=== PATIENT | male | born 1960 | race Caucasian/White ===

== ENCOUNTER 2019-09-09 08:30 | Inpatient (IN) | payer BC, OTHER ==
[~2019-09-09] VITALS: Ht 177.8 cm; Wt 106.5 kg
[2019-09-09] MEDS ORDERED: NS IV 1000 ML 1,000 ML IV SCH ×2 (08:50→11:15)
--- NOTE | 2019-09-09 09:06 | ED Abdominal Pain ---
General Chief Complaint: Abdominal/GI Problems Stated Complaint: ABD PAIN Source of Information: Patient Exam Limitations: No Limitations History of Present Illness Date Seen by Provider: Sep 09, 2019 Time Seen by Provider: 08:50 Initial Comments 58-year-old male presents to the emergency room with acute left-sided pain. Patient states that he has had diverticulitis in the past. Patient reports he's had pain on and off for the past for 5 days. Intensely over the past evening. Patient states that he has had diverticulitis in the past and hasn't been on ciprofloxacin and Flagyl recently. He does not have a local provider. He also had surgery for skin cancer basal cell cancer on the right face with a fairly large 10 cm laceration that has been sutured and does have some localized erythema. Patient denies any history of cardiovascular pulmonary or renal disease. Patient has given informed consent for diagnostic and therapeutic services. He did say that he had labs recently including urinalysis but did not know the results. Timing/Duration: 2-3 Days (has been on oral Flagyl 500 mg 3 times a day and ciprofloxacin 500 mg daily patient has failed outpatient services), 3-4 Days (symptoms started 5 days ago he has had one previous episode of diverticulitis and states that the pain is the same), Getting Worse Severity/Quality: Moderate, Cramping Location: LLQ (similar to previous diverticulitis attacks) Radiation: LUQ, LLQ Activities at Onset: None (pain both at rest and with any type of physical activity) Modifying Factors: Improves With Defecating (she did take milk of magnesia yesterday which appears to worsen the situation. He thought he was constipated 3 days ago and has had bowel movements with flatus) Associated Symptoms: Back Pain Allergies and Home Medications Allergies Coded Allergies: No Known Drug Allergies (Unverified , 09/09/19) Patient Home Medication List Home Medication List Reviewed: Yes Review of Systems Review of Systems Constitutional: malaise, other (abdominal pain left lower quadrant consistent with previous history of diverticulitis) EENTM: No Symptoms Reported Respiratory: Cough (patient admits to smoking tobacco and has a chronic cough) Cardiovascular: No Symptoms Reported Gastrointestinal: Abdomen Distended, Abdominal Pain (left lower quadrant), Constipated (recent use of milk of magnesia), Nausea Genitourinary: Flank Pain (left flank pain) Musculoskeletal: back pain Skin: change in color (recent surgical removal of basal cell cancer large laceration approximately 10 cm in length with erythema and induration. Patient states that he had the lesion on his face for over 15 years) Psychiatric/Neurological: Anxiety Hematologic/Lymphatic: No Symptoms Reported Other Comments Patient has findings with left lower quadrant pain pain on palpation decreased bowel sounds and reports that this is consistent with his last bout of diverticulitis. 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 and has a history of 15) Orthopedic Respiratory: No Chronic Bronchitis (longtime smoker) Cardiac: No Neurological: No Genitourinary: No Gastrointestinal: Yes Diverticulosis (prior history of diverticulitis with similar pain patient was seen 2 days ago and was placed on Flagyl and ciprofloxacin without improvement) Musculoskeletal: No Chronic Back Pain Endocrine: No HEENT: No Skin Did You Recieve Any Treatments: Yes What Type of Treatment Did You: Surgical Intervention Psychosocial: No Integumentary: No Blood Disorders: No Physical Exam Vital Signs Vital Signs - First Documented 09/09/19 08:30 Temp 36.2 Pulse 93 Resp 16 B/P (MAP) 129/71 (90) Pulse Ox 96 O2 Delivery Room Air Capillary Refill : Height/Weight/BMI Height: '" Weight: lbs. oz. kg; BMI Method: General Appearance: WD/WN HEENT: PERRL/EOMI, normal ENT inspection, pharynx normal Neck: non-tender, full range of motion Respiratory: chest non-tender, crackles (patient is a smoker one pack per day no shortness of breath) Cardiovascular: normal peripheral pulses, regular rate, rhythm, no edema, no gallop, no JVD, no murmur Gastrointestinal: abnormal bowel sounds (diminished bowel sounds pain in the l ower quadrant), tenderness (left lower quadrant consistent with prior episode of diverticulitis getting worse on oral antibiotics) Extremities: normal range of motion, non-tender, normal inspection, no pedal edema, no calf tenderness Back: CVA tenderness (L) Neurologic/Psychiatric: cio II-XII nml as tested, no motor/sensory deficits, alert, normal mood/affect, oriented x 3 (but has marked pain in the left lower quadrant) Skin: normal color Focused Exam Lactate Level 09/09/19 08:45: Lactic Acid Level 1.91 Lactic Acid Level Laboratory Tests Test 09/09/19 08:45 Lactic Acid Level 1.91 MMOL/L (0.50-2.00) Progress/Results/Core Measures Results/Orders Lab Results Laboratory Tests Test 09/09/19 08:45 09/09/19 09:58 Range/Units White Blood Count 8.5 4.3-11.0 10^3/uL Red Blood Count 5.57 4.35-5.85 10^6/uL Hemoglobin 17.3 13.3-17.7 G/DL Hematocrit 52 40-54 % Mean Corpuscular Volume 93 80-99 FL Mean Corpuscular Hemoglobin 31 25-34 PG Mean Corpuscular Hemoglobin Concent 33 32-36 G/DL Red Cell Distribution Width 13.8 10.0-14.5 % Platelet Count 207 130-400 10^3/uL Mean Platelet Volume 10.2 7.4-10.4 FL Neutrophils (%) (Auto) 60 42-75 % Lymphocytes (%) (Auto) 26 12-44 % Monocytes (%) (Auto) 8 0-12 % Eosinophils (%) (Auto) 2 0-10 % Basophils (%) (Auto) 1 0-10 % Neutrophils # (Auto) 5.0 1.8-7.8 X 10^3 Lymphocytes # (Auto) 2.5 1.0-4.0 X 10^3 Monocytes # (Auto) 0.7 0.0-1.0 X 10^3 Eosinophils # (Auto) 0.2 0.0-0.3 10^3/uL Basophils # (Auto) 0.1 0.0-0.1 10^3/uL Sodium Level 135 135-145 MMOL/L Potassium Level 4.4 3.6-5.0 MMOL/L Chloride Level 100 98-107 MMOL/L Carbon Dioxide Level 19 L 21-32 MMOL/L Anion Gap 16 H 5-14 MMOL/L Blood Urea Nitrogen 23 H 7-18 MG/DL Creatinine 1.05 0.60-1.30 MG/DL Estimat Glomerular Filtration Rate > 60 BUN/Creatinine Ratio 22 Glucose Level 103 70-105 MG/DL Lactic Acid Level 1.91 0.50-2.00 MMOL/L Calcium Level 9.3 8.5-10.1 MG/DL Corrected Calcium 8.9 8.5-10.1 MG/DL Total Bilirubin 0.6 0.1-1.0 MG/DL Aspartate Amino Transf (AST/SGOT) 28 5-34 U/L Alanine Aminotransferase (ALT/SGPT) 36 0-55 U/L Alkaline Phosphatase 92 40-136 U/L Total Protein 7.9 6.4-8.2 GM/DL Albumin 4.5 3.2-4.5 GM/DL Lipase 44 8-78 U/L Urine Color YELLOW Urine Clarity CLEAR Urine pH 7.5 5-9 Urine Specific [place] 1.010 L 1.016-1.022 Urine Protein NEGATIVE NEGATIVE Urine Glucose (UA) NEGATIVE NEGATIVE Urine Ketones NEGATIVE NEGATIVE Urine Nitrite NEGATIVE NEGATIVE Urine Bilirubin NEGATIVE NEGATIVE Urine Urobilinogen 0.2 < = 1.0 MG/DL Urine Leukocyte Esterase NEGATIVE NEGATIVE Urine RBC (Auto) NEGATIVE NEGATIVE Urine RBC NONE /HPF Urine WBC RARE /HPF Urine Squamous Epithelial Cells RARE /HPF Urine Crystals NONE /LPF Urine Bacteria NEGATIVE /HPF Urine Casts NONE /LPF Urine Mucus NEGATIVE /LPF Urine Culture Indicated NO My Orders Orders - REENA NORTH DO Comprehensive Metabolic Panel (09/09/19 08:50) Lipase (09/09/19 08:50) Ua Culture If Indicated (09/09/19 08:50) Ed Iv/Invasive Line Start (09/09/19 08:50) Cbc With Automated Diff (09/09/19 08:50) Ed Iv/Invasive Line Start (09/09/19 08:50) Ns Iv 1000 Ml (Sodium Chloride 0.9%) (09/09/19 08:50) Blood Culture (09/09/19 08:50) Lactic Acid Analyzer (09/09/19 08:50) Iohexol Injection (Omnipaque 350 Mg/Ml 1 (09/09/19 09:45) Received Contrast (Hold Metformin- Contr (09/09/19 09:45) Ct Abdomen/Pelvis W (09/09/19 08:50) Metronidazole 500mg/100ml Ivpb (Flagyl 5 (09/09/19 11:15) Ns Iv 1000 Ml (Sodium Chloride 0.9%) (09/09/19 11:15) Ketorolac Injection (Toradol Injection) (09/09/19 11:30) Medications Given in ED Current Medications Medications Dose Ordered Sig/Anibal Route Start Time Stop Time Status Last Admin Dose Admin Iohexol 100 ml ONCE ONCE IV 09/09/19 09:45 09/09/19 09:46 DC 09/09/19 09:49 100 ML Metronidazole 100 ml @ 100 mls/hr ONCE ONCE IV 09/09/19 11:15 09/09/19 12:14 09/09/19 11:17 100 MLS/HR Vital Signs/I&O 09/09/19 08:30 Temp 36.2 Pulse 93 Resp 16 B/P (MAP) 129/71 (90) Pulse Ox 96 O2 Delivery Room Air Diagnostic Imaging Diagonstic Imaging: CT (CT scan of the abdomen reveals diffuse mild severity hepatic steatosis without focal lesions gallbladder is present mildly distended is no significant bile duct dilation spleen pancreas adrenal glands are unremarkable kidneys are normal enhancement no hydronephrosis or obstruction abdominal aorta has mild atherosclerotic plaques that is fairly tortuous. There is extensive colonic diverticulosis particularly at the sigmoid colon there is diffuse wall thickening of the sigmoid colon a focal inflamed diverticulum is not definitively visualized however given the wall thickening may be chronic possibly underlying colitis cannot be excluded there are a few prominent fluid- filled loops of small bowel that may reflect nonspecific enteritis no high degree of bowel obstruction there is some fluid in the proximal colon normal appendix is present there is no abdominal ascites or free air. In light of the patient's diagnostic presentation and failure to outpatient treatment I believe he has diverticulitis partially treated and got rest with IV antibiotics is recommended.) Comments Dr. howard Billy contacted at [phone] Haywood was contacted [phone]. Both agreed to inpatient stabilization at the [facility]. Patient can be transported by BLS ambulance Consults : Consulting Physician: IJEOMA HAYWOOD DO Consults Notes Telephone consultation with Dr. Haywood. Results of CT scan given and he agrees to hospitalist admission with nothing by mouth IV Flagyl and IV Zosyn. Departure Communication (Admissions) Time/Spoke to Admitting Phy: 11:35 Dr. Hong has agreed to admission to the [facility]. Dr. Haywood surgeon was also contacted and agrees with the admission. Patient is on IV fluids second liter has been started. Patient also was receiving Flagyl 500 mg IV after Walker had recommended continued IV antibiotics with Flagyl and Zosyn. Time/Spoke to Consulting Phy: 11:45 Dr. Haywood surgeon was contacted and agreed with admission. Patient has no evidence of abscess formation. Family Conversation Patient is aware of the transfer to [facility] and he will comply. Patient will be transported by S ambulance Patient has failed to respond positively to oral antibiotics with ciprofloxacin and Flagyl orally. Patient has a history of diverticulitis and a CT scan that is highly suspicious for continued and exacerbated diverticulitis. He has multiple episodes of diverticulosis identified in the sigmoid colon. In light of the patient's failure to respond to outpatient therapy IV antibiotics and got rest is most appropriate. Patient is being transferred to a higher level of care. Communication (PCP) Patient does not have a primary care provider. He had gone to the walk-in clinic earlier this week Pseudomonal Risk: No known risk Antibiotic last taken at: IV Flagyl administered in the emergency room Impression Primary Impression: Diverticulitis of intestine Additional Impression: Dehydration Disposition: ADMITTED INPATIENT Condition: Stable Admissions Decision to Admit Reason: Admit from ER (General) Decision to Admit/Date: Sep 09, 2019 Time/Decision to Admit Time: 11:45 Transfer Transfer Reason: Exceeds level of care Time Spoke to Accepting Phy: 11:[address] Hong has accepted the patient after Dr. Haywood has agreed to consult on the patient Transfer Time: 12:01 Transfer Facility: [facility] Method of Transfer: EMS Departure-Patient Inst. Decision time for Depature: 12:01 Referrals: NO,LOCAL PHYSICIAN (PCP) Primary Care Physician SHERITA GONZALEZ MD, ANTHONY H DO Sep 09, 2019 09:06
[2019-09-09 09:18] LABS: BASOPHILS % (AUTO) 1 % (0-10); EOSINOPHILS % (AUTO) 2 % (0-10); HEMATOCRIT 52 % (40-54); HEMOGLOBIN 17.3 G/DL (13.3-17.7); MEAN CORPUSCULAR HEMOGLOBIN 31 PG (25-34); MEAN CORPUSCULAR HGB CONC 33 G/DL (32-36); MEAN CORPUSCULAR VOLUME 93 FL (80-99); MEAN PLATELET VOLUME 10.2 FL (7.4-10.4); MONOCYTES % (AUTO) 8 % (0-12); NEUTROPHILS % (AUTO) 60 % (42-75); PLATELET COUNT 207 10^3/uL (130-400); RED CELL DISTRIBUTION WIDTH 13.8 % (10.0-14.5); WHITE BLOOD COUNT 8.5 10^3/uL (4.3-11.0)
[2019-09-09 09:19] LABS: BASOPHILS # (AUTO) 0.1 10^3/uL (0.0-0.1); EOSINOPHILS # (AUTO) 0.2 10^3/uL (0.0-0.3); LYMPHOCYTES # (AUTO) 2.5 X 10^3 (1.0-4.0); LYMPHOCYTES % (AUTO) 26 % (12-44); MONOCYTES # (AUTO) 0.7 X 10^3 (0.0-1.0)
[2019-09-09 09:28] LABS: ALKALINE PHOSPHATASE 92 U/L (40-136); BILIRUBIN,TOTAL 0.6 MG/DL (0.1-1.0); BUN/CREATININE RATIO 22; CALCIUM 9.3 MG/DL (8.5-10.1); CARBON DIOXIDE 19 MMOL/L (21-32); CHLORIDE 100 MMOL/L (98-107); CREATININE SERUM 1.05 MG/DL (0.60-1.30); GFR ESTIMATED > 60; GLUCOSE 103 MG/DL (70-105); POTASSIUM 4.4 MMOL/L (3.6-5.0); SODIUM 135 MMOL/L (135-145)
[2019-09-09 09:29] LABS: ALANINE AMINOTRANSFERASE 36 U/L (0-55); ALBUMIN 4.5 GM/DL (3.2-4.5); LIPASE 44 U/L (8-78); TOTAL PROTEIN 7.9 GM/DL (6.4-8.2)
[2019-09-09] MEDS ORDERED: IOHEXOL 350 MG/ML 100 ML (OMNIPAQUE 350) VIAL IV ONE (09:45)
[2019-09-09] MEDS ORDERED: HOLD METFORMIN - RECEIVED CONTRAST 20 ML VIAL IV SCH (09:45)
[2019-09-09 10:09] LABS: CLARITY,URINE CLEAR; COLOR,URINE YELLOW
[2019-09-09 10:10] LABS: BACTERIA,URINE NEGATIVE /HPF; BILIRUBIN,URINE NEGATIVE (NEGATIVE); GLUCOSE, URINE (UA) NEGATIVE (NEGATIVE); KETONES,URINE NEGATIVE (NEGATIVE); LEUKOCYTE ESTERASE ,URINE NEGATIVE (NEGATIVE); NITRITE,URINE NEGATIVE (NEGATIVE); PH,URINE 7.5 (5-9); PROTEIN,URINE NEGATIVE (NEGATIVE); SQUAMOUS EPITHELIAL CELL,UR RARE /HPF; WBC,URINE RARE /HPF
--- NOTE | 2019-09-09 10:29 | Diagnostic Imaging Report ---
PROCEDURE: CT abdomen and pelvis with contrast. TECHNIQUE: Multiple contiguous axial images were obtained through the abdomen and pelvis after administration of intravenous contrast. Auto Exposure Controls were utilized during the CT exam to meet ALARA standards for radiation dose reduction. INDICATION: Abdominal pain and pressure. Symptoms beginning several days earlier. Progressive increase in pain and pressure post antibiotic initiation. CORRELATION STUDY: None FINDINGS: Minimal subsegmental areas of atelectasis. No significant basilar infiltrate. Small hiatal hernia. Diffuse mild severity hepatic steatosis without focal lesion. Gallbladder is present, very mildly distended. No significant bile duct dilatation. Spleen, pancreas and adrenal glands are unremarkable. Kidneys with normal enhancement. No hydronephrosis or obstruction. The abdominal aorta demonstrates mild atherosclerotic plaque-like formation that is fairly tortuous. There is extensive colonic diverticulosis particularly at the sigmoid colon. There is diffuse wall thickening of sigmoid colon. A focal inflamed diverticulum is not definitively visualized. However, given the wall thickening may be chronic, possibly of underlying colitis not excluded. Additionally, there are a few prominent fluid-filled loops of small bowel that may reflect nonspecific enteritis. No high degree bowel obstruction. There is some fluid in the proximal colon. Normal appendix is present. There is no abdominal ascites or free air. Urinary bladder unremarkable. Prostate gland and seminal vesicles are unremarkable. IMPRESSION: 1. Extensive colonic diverticulosis. Asymmetric wall thickening of the sigmoid colon. A definitive inflamed diverticulum is not demonstrated, however there is wall thickening, chronic or low-grade colitis is not excluded. Given the wall thickening, when the acute symptoms have subsided, consideration for colon cancer screening would be recommended if not recently performed. 2. Few fluid-filled and thickened loops small bowel suggestive of nonspecific enteritis in left mid abdomen. 3. Mild severity hepatic steatosis. Slightly distended gallbladder without bile duct dilatation. Dictated by: Dictated on workstation # [id number]
[2019-09-09] MEDS ORDERED: metroNIDAZOLE 500MG/100ML IVPB 100 ML IV ONE (11:15)
[2019-09-09] MEDS ORDERED: KETOROLAC 30 MG/ML VIAL IVP ONE (11:30)
--- NOTE | 2019-09-09 13:15 | NUR ---
LA REYES admitted to room 410-1, with an admitting diagnosis of ACUTE DIVERTICULITIS, FAILED OUTPATIENT TREATMENT, on 09/09/19 from [facility] via [facility], accompanied by [facility]. LA REYES introduced to surroundings, call light, bed controls, phone, TV, temperature control, lights, meal times, smoking policy, visitor policy, side rail policy, bathrooms and showers. Patient Rights given to patient in the handbook. LA REYES verbalizes understanding that [facility] is not responsible for the loss or damage to any personal effects or valuables that are kept in the patients possession during their hospitalization. The following Patient Care Plans were discussed with the PATIENT: Discharge Planning, DIVERTICULITIS and KNOWLEDGE DEFICIT. LA REYES verbalizes understanding of Interdisciplinary Patient Education. Patient and/or family were informed about the Rapid Response Team and its purpose.
[2019-09-09 13:28] VITALS: BP 129/90
[2019-09-09] MEDS ORDERED: ONDANSETRON 4 MG (ZOFRAN) ORAL DISSOLVE TAB PO PRN (13:30)
[2019-09-09] MEDS ORDERED: NICOTINE 14 MG (NICODERM) PATCH TD PRN (13:30)
[2019-09-09] MEDS ORDERED: ONDANSETRON 4 MG/2 ML (SDV) Z0FRAN IV PRN (13:30)
[2019-09-09] MEDS ORDERED: ACETAMINOPHEN 325 MG TABLET PO PRN (13:30)
[2019-09-09] MEDS ORDERED: POLYETHYLENE GLYCOL 17 GM (MIRALAX) PACK PO PRN (13:30)
[2019-09-09] MEDS ORDERED: ANTACID SUSP 30 ML UDC (MYLANTA) PO PRN (13:30)
[2019-09-09] MEDS ORDERED: BISACODYL 10 MG SUPP (DULCOLAX) PR PRN (13:30)
[2019-09-09] MEDS ORDERED: HYDROmorphone 2 MG/ML VIAL (DILAUDID) IV PRN (13:30)
--- NOTE | 2019-09-09 13:34 | History & Physical-Hospitalist ---
History of Present Illness HPI/Chief Complaint Narinder Melgar is a 50-year-old male with past medical history of diverticulitis who presented with abdominal pain. He reports that the pain started on Wednesday. He eventually went into an urgent care and was started on antibiotics with Cipro and Flagyl. Today, he was traveling to [place] to do some work and had to turn around due to abdominal pain. He denies any fevers or chills. He denies any chest pain or shortness of breath. He denies any nausea or vomiting. He reports that he has had about 4-5 episodes of diverticulitis since 2011. He says that they usually occur after he eats peanuts or tomatoes. Source: patient Exam Limitations: no limitations Date Seen 09/09/19 Time Seen by a Provider: 13:15 Attending Physician Sherita Gonzalez MD PCP No,Local Physician Referring Physician IJEOMA HAYWOOD DO Date of Admission Sep 09, 2019 at 12:09 Home Medications & Allergies Home Medications Reviewed patient Home Medication Reconciliation performed by pharmacy medication reconciliations veterinary technician instructor and/or nursing. Patients Allergies have been reviewed. Allergies Allergies Coded Allergies No Known Drug Allergies (Unverified09/09/19) Past Acpkwjy-Hyaajl-Yvmrbi Hx Past Med/Social Hx: Reviewed Nursing Past Med/Soc Hx Patient Social History Alcohol Use: Regular Use Number of Drinks Today: 0 Alcohol Beverage of Choice: Beer Recreational Drug Use: No Smoking Status: Current Everyday Smoker 2nd Hand Smoke Exposure: No Recent Foreign Travel: No Contact w/other who traveled: No Recent Hopitalizations: No Recent Infectious Disease Expo: No Seasonal Allergies Seasonal Allergies: No Past Medical History Surgeries: Orthopedic Gastrointestinal: Diverticulosis (prior history of diverticulitis with similar pain patient was seen 2 days ago and was placed on Flagyl and ciprofloxacin without improvement) Musculoskeletal: Chronic Back Pain Cancer: Skin Did You Recieve Any Treatments: Yes What Type of Treatment Did You: Surgical Intervention History of Blood Disorders: No Review of Systems Constitutional: no symptoms reported EENTM: no symptoms reported Respiratory: no symptoms reported Cardiovascular: no symptoms reported Gastrointestinal: abdominal pain Genitourinary: no symptoms reported Musculoskeletal: no symptoms reported Skin: no symptoms reported Psychiatric/Neurological: No Symptoms Reported Physical Exam Physical Exam Vital Signs Vital Signs - First Documented 09/09/19 08:30 Temp 36.2 Pulse 93 Resp 16 B/P (MAP) 129/71 (90) Pulse Ox 96 O2 Delivery Room Air Capillary Refill : Less Than 3 Seconds Height, Weight, BMI Height: '" Weight: lbs. oz. kg; 33.00 BMI Method: General Appearance: No Apparent Distress, WD/WN, Obese HEENT: PERRL/EOMI, Pharynx Normal Neck: Normal Inspection, Supple Respiratory: Lungs Clear, Normal Breath Sounds, No Respiratory Distress Cardiovascular: Regular Rate, Rhythm, No Edema, No Murmur Gastrointestinal: Normal Bowel Sounds, Non Tender, Soft Extremity: Normal Inspection, Non Tender, No Pedal Edema Neurologic/Psychiatric: Alert, Oriented x3, No Motor/Sensory Deficits, Normal Mood/Affect Skin: Normal Color, Warm/Dry Lymphatic: No Adenopathy Results Results/Procedures Labs Laboratory Tests 09/09/19 08:45 Patient resulted labs reviewed. Imaging: Reviewed Imaging Report Assessment/Plan Admission Diagnosis diverticulitis Admission Status: Inpatient Order (span 2 midnights) Reason for Inpatient Admission: diverticulitis requiring IV antibiotics and surgical consultation Assessment and Plan Diverticulitis CT abdomen revealed colitis History of recurrent diverticulitis begin Rocephin and Flagyl Nothing by mouth Consult surgery for assistance Pain regimen ordered Nicotine dependence, cigarettes, uncomplicated Nicotine patch ordered as needed DVT prophylaxis: Lovenox Clinical Quality Measures Pneumonia: Pseudomonal Risk: No known risk Antibiotic last taken at: IV Flagyl administered in the emergency room SHERITA GONZALEZ MD Sep 09, 2019 13:34
[2019-09-09] MEDS ORDERED: CATHETER FLUSH 10 ML SYR IV PRN (14:00)
[2019-09-09] MEDS ORDERED: NICOTINE PATCH REMOVAL TP PRN (14:00)
[2019-09-09] MEDS ORDERED: metroNIDAZOLE 500MG/100ML IVPB 100 ML IV SCH (14:00)
--- NOTE | 2019-09-09 14:20 | Consultation - Surgery ---
JEANNINE BROWN [facility] 09/09/19 1419: History of Present Illness History of Present Illness Patient Consulted On(tash/time) 09/09/19 14:10 Date Seen by Provider: Sep 09, 2019 Time Seen by Provider: 13:50 Reason for Visit: Consultation for Diverticulitis History of Present Illness Consulted by [facility] Pt here from [facility] for management of diverticulitis that was resistant to outpatient Metronidazole and Ciprofloxacin treatment. Pt reports the pain started 5 days ago as a sharp intermittent left back pain that comes around to the front left LLQ in a band and was similar to previous episodes he has had in the past. He was first diagnosed with diverticulosis in 2011 and has had about 4-5 episodes since then the last one was about 1-2 years ago. He normally responds well to the antibiotic therapy he was given 3d ago, but does report in the past he only take the antibiotics for 2-3 days then stops when his pain goes away not finishing the entire course of antibiotics. He reports eating a few peanuts and his made a meal with fresh tomatoes that he thinks may have been what caused it to flare up again. He states the pain is at about a 4/10 currently and that it was a 7/10 when he first went to the ER stating that the anti-inflammatory they gave him there seemed to work well. He reports the pain is worse with walking or sitting upright for long periods especially in the car with the bouncing of the car on the road. He reports drinking a little milk of magnesia yesterday that did get him going a little more, and he thinks it may have helped a little. He states whie sitting he does feel like his stomach is a little more bloated. 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) Surgeries: Orthopedic Respiratory History of Respiratory Disorde: No Respiratory Disorders: Chronic Bronchitis (longtime smoker) Cardiovascular History of Cardiac Disorders: No Neurological History of Neurological Disord: No Genitourinary History of Genitourinary Disor: No Gastrointestinal History of Gastrointestinal Di: Yes Gastrointestinal Disorders: Diverticulosis (prior history of diverticulitis with similar pain patient was seen 2 days ago and was placed on Flagyl and ciprofloxacin without improvement) Musculoskeletal History of Musculoskeletal Dis: No Musculoskeletal Disorders: Chronic Back Pain Endocrine History of Endocrine Disorders: No HEENT History of HEENT Disorders: No Cancer Cancer: Skin Psychosocial History of Psychiatric Problem: No Integumentary History of Skin or Integumenta: No Blood Transfusions History of Blood Disorders: No Family Medical History Significant Family History: No Pertinent Family Hx (Pt denies family hx in parents and siblings) Family Medial History: Patient reports no known family medical history. Review of Systems-General Constitutional: No chills, No dizziness, No fever, No weakness EENTM: No blurred vision, No double vision, No vision loss, No nose congestion Respiratory: No cough, No dyspnea on exertion, No short of breath Cardiovascular: No chest pain, No Hx of Intervention, No palpitations Gastrointestinal: abdominal pain (LLQ radiating from back ); No constipation, No diarrhea; nausea (Mild); No vomiting Genitourinary: No dysuria, No hematuria, No pain Musculoskeletal: back pain (Radiates to LLQ), joint pain (Bilateral knee) Skin: hx of skin cancer (Basal cell carcinoma excision 10d ago on right cheek); No lesions Psychiatric/Neurological: Headache; Denies Numbness, Denies Tingling, Denies Weakness Physical Exam-General Problems Physical Exam Vital Signs Vital Signs - First Documented 09/09/19 08:30 Temp 36.2 Pulse 93 Resp 16 B/P (MAP) 129/71 (90) Pulse Ox 96 O2 Delivery Room Air Capillary Refill : Less Than 3 Seconds General Appearance: WD/WN, no apparent distress HEENT: PERRL/EOMI, pharynx normal Neck: full range of motion, supple, normal inspection Respiratory: chest non-tender, lungs clear, normal breath sounds, no respiratory distress, no accessory muscle use Cardiovascular: normal peripheral pulses, regular rate, rhythm, no edema, no gallop, no JVD, no murmur Peripheral Pulses: 2+ Dorsalis Pedis (R), 2+ Left Dors-Pedis (L), 2+ Radial Pulses (R), 2+ Radial Pulses (L) Gastrointestinal: normal bowel sounds, soft, no organomegaly Extremities: normal range of motion, normal inspection, no pedal edema, no calf tenderness Neurologic/Psychiatric: no motor/sensory deficits, alert, normal mood/affect, oriented x 3 Skin: normal color, warm/dry Lymphatic: no adenopathy Data Review Labs Laboratory Tests 09/09/19 08:45: White Blood Count 8.5, Red Blood Count 5.57, Hemoglobin 17.3, Hematocrit 52, Mean Corpuscular Volume 93, Mean Corpuscular Hemoglobin 31, Mean Corpuscular Hemoglobin Concent 33, Red Cell Distribution Width 13.8, Platelet Count 207, Mean Platelet Volume 10.2, Neutrophils (%) (Auto) 60, Lymphocytes (%) (Auto) 26, Monocytes (%) (Auto) 8, Eosinophils (%) (Auto) 2, Basophils (%) (Auto) 1, Neutrophils # (Auto) 5.0, Lymphocytes # (Auto) 2.5, Monocytes # (Auto) 0.7, Eosinophils # (Auto) 0.2, Basophils # (Auto) 0.1, Sodium Level 135, Potassium Level 4.4, Chloride Level 100, Carbon Dioxide Level 19L, Anion Gap 16H, Blood Urea Nitrogen 23H, Creatinine 1.05, Estimat Glomerular Filtration Rate > 60, BUN/Creatinine Ratio 22, Glucose Level 103, Lactic Acid Level 1.91, Calcium Level 9.3, Corrected Calcium 8.9, Total Bilirubin 0.6, Aspartate Amino Transf (AST/SGOT) 28, Alanine Aminotransferase (ALT/SGPT) 36, Alkaline Phosphatase 92, Total Protein 7.9, Albumin 4.5, Lipase 44 09/09/19 09:58: Urine Color YELLOW, Urine Clarity CLEAR, Urine pH 7.5, Urine Specific [place] 1.010L, Urine Protein NEGATIVE, Urine Glucose (UA) NEGATIVE, Urine Ketones NEGATIVE, Urine Nitrite NEGATIVE, Urine Bilirubin NEGATIVE, Urine Urobilinogen 0.2, Urine Leukocyte Esterase NEGATIVE, Urine RBC (Auto) NEGATIVE, Urine RBC NONE, Urine WBC RARE, Urine Squamous Epithelial Cells RARE, Urine Crystals NONE, Urine Bacteria NEGATIVE, Urine Casts NONE, Urine Mucus NEGATIVE, Urine Culture Indicated NO Assessment/Plan Assessment/Plan Assessment/Plan Diverticulitis poor response to oral outpatient antibiotics -Rocephin, IV Flagyl -NPO status -IV maintenance hydration -Pain management (Toradol) Alcohol abuse -Monitor for withdrawal if prolonged stay in hospital Tobacco abuse -Consider nicotine patch if needed for withdrawal Clinical Quality Measures DVT/VTE Risk/Contraindication: Risk Factor Score Per Nursin RFS Level Per Nursing on Admit: 3=High Pneumonia: Pseudomonal Risk: No known risk Antibiotic last taken at: IV Flagyl administered in the emergency room CHASTITYIJEOMA Gila CAMPOVERDE [birth year]: History of Present Illness History of Present Illness History of Present Illness 58 year old male who was being treated for diverticulitis outpatient. This morning was driving out of town when pain became severe, sharp intermittent . As high as 10/10 currently about a 4/10. Pain llq and left side. Feels food/diet may have flared it up again. Anti-inflammatory medication helped some. Has had about 4-5 episodes previously. Has never had a colonoscopy. Ct scan was done in [facility] demonstrating diverticulosis with thickening of the sigmoid colon, some fluid filled small bowel loops (enteritis) and slightly distended gallbladder. Patient no other complaints at this time. Denies emesis, fever sweats chills shortness of breath or chest pain at this time. Allergies and Home Medications Allergies Coded Allergies: No Known Drug Allergies (Unverified , 09/09/19) Patient Home Medication List Home Medication List Reviewed: Yes Past Ftnjauh-Novdbv-Igkamh Hx Patient Social History Alcohol Use: Regular Use (1-2 beers a day) Smoking Status: Current Everyday Smoker (40 pack year history) Reviewed Nursing Assessment Reviewed/Agree w Nursing PMH: Yes Family Medical History Significant Family History: No Pertinent Family Hx (Pt denies family hx in parents and siblings) Family Medial History: Patient reports no known family medical history. Review of Systems-General Constitutional: No chills, No fever, No weakness EENTM: No blurred vision, No double vision Respiratory: No cough, No dyspnea on exertion Cardiovascular: No chest pain Gastrointestinal: abdominal pain (LLQ), nausea (Mild); No vomiting Musculoskeletal: back pain, joint pain (Bilateral knee) Skin: hx of skin cancer (Basal cell carcinoma excision 10d ago on right cheek); No lesions Psychiatric/Neurological: Denies Headache, Denies Numbness, Denies Weakness Physical Exam-General Problems Physical Exam General Appearance: WD/WN, no apparent distress HEENT: PERRL/EOMI, pharynx normal, other (scar right cheek) Neck: full range of motion, supple, normal inspection Respiratory: chest non-tender, no respiratory distress, no accessory muscle use Cardiovascular: normal peripheral pulses, regular rate, rhythm Gastrointestinal: normal bowel sounds, soft, no organomegaly; No guarding, No rebound; tenderness (llq) Back: normal inspection Extremities: normal range of motion, normal inspection, no pedal edema, no calf tenderness Neurologic/Psychiatric: no motor/sensory deficits, alert, normal mood/affect, oriented x 3 Skin: normal color, warm/dry Lymphatic: no adenopathy Assessment/Plan Assessment/Plan Assessment/Plan LLQ abdominal pain Diverticulitis NPO IV hydration continue iv antibioitcs no surgical intervention at this time once resolves will need a colonoscopy in about 6 weeks. will have follow up with me in 4 weeks once discharged. Supervisory-Addendum Brief Verification & Attestation Participated in pt care: history, MDM, physical Personally performed: exam, history, MDM, supervision of care Care discussed with: Medical Student Procedures: n/a Results interpretation: Verified all documentation Verification and Attestation of Medical Student E/M Service A medical student performed and documented this service in my presence. I reviewed and verified all information documented by the medical student and made modifications to such information, when appropriate. I personally performed the physical exam and medical decision making. Ijeoma Cardoso, Sep 09, 2019,20:04 JEANNINE BROWN RUSTPILLO Sep 09, 2019 14:19 IJEOMA CARDOSO DO Sep 09, 2019 19:59
[2019-09-09] MEDS: LACTATED RINGERS 1,000 ML IV SCH (15:12)
[2019-09-09] MEDS: ENOXAPARIN 40 MG/0.4 ML (LOVENOX) SYR SC SCH (15:13)
[2019-09-09] MEDS: cefTRIAXone FOR IV USE 2,000 MG in WATER (STERILE) FOR INJECTION 20 ML IV SCH (15:13)
[2019-09-09 16:00] VITALS: BP 120/76
[2019-09-09] MEDS: metroNIDAZOLE 500MG/100ML IVPB 100 ML IV SCH (18:40)
[2019-09-09 19:52] VITALS: BP 156/72
[2019-09-09] MEDS: MELATONIN 3 MG TABLET PO PRN (20:59)
[2019-09-10] VITALS (7 sets, daily range): BP systolic 104–129; BP diastolic 64–94
[2019-09-10] MEDS: LACTATED RINGERS 1,000 ML IV SCH ×2 (00:37→11:47)
[2019-09-10] MEDS: metroNIDAZOLE 500MG/100ML IVPB 100 ML IV SCH ×3 (02:33→18:16)
[2019-09-10 05:36] LABS: BASOPHILS % (AUTO) 1 % (0-10); EOSINOPHILS # (AUTO) 0.2 10^3/uL (0.0-0.3); EOSINOPHILS % (AUTO) 4 % (0-10); HEMATOCRIT 43 % (40-54); HEMOGLOBIN 14.7 G/DL (13.3-17.7); LYMPHOCYTES # (AUTO) 1.6 X 10^3 (1.0-4.0); LYMPHOCYTES % (AUTO) 30 % (12-44); MEAN CORPUSCULAR HEMOGLOBIN 31 PG (25-34); MEAN CORPUSCULAR HGB CONC 34 G/DL (32-36); MEAN CORPUSCULAR VOLUME 91 FL (80-99); MEAN PLATELET VOLUME 10.4 FL (7.4-10.4); MONOCYTES # (AUTO) 0.5 X 10^3 (0.0-1.0); MONOCYTES % (AUTO) 9 % (0-12); NEUTROPHILS # (AUTO) 3.1 X 10^3 (1.8-7.8); NEUTROPHILS % (AUTO) 57 % (42-75); PLATELET COUNT 160 10^3/uL (130-400); RED CELL DISTRIBUTION WIDTH 14.3 % (10.0-14.5); WHITE BLOOD COUNT 5.5 10^3/uL (4.3-11.0)
[2019-09-10 06:02] LABS: ALANINE AMINOTRANSFERASE 34 U/L (0-55); ALBUMIN 3.5 GM/DL (3.2-4.5); ALKALINE PHOSPHATASE 70 U/L (40-136); BILIRUBIN,TOTAL 0.6 MG/DL (0.1-1.0); BUN/CREATININE RATIO 21; CALCIUM 8.5 MG/DL (8.5-10.1); CARBON DIOXIDE 18 MMOL/L (21-32); CHLORIDE 109 MMOL/L (98-107); CREATININE SERUM 1.06 MG/DL (0.60-1.30); GFR ESTIMATED > 60; GLUCOSE 85 MG/DL (70-105); POTASSIUM 4.2 MMOL/L (3.6-5.0); SODIUM 137 MMOL/L (135-145); TOTAL PROTEIN 6.2 GM/DL (6.4-8.2)
--- NOTE | 2019-09-10 09:37 | Progress Note - Surgery ---
JEANNINE BROWN [facility] 09/10/19 0937: Subjective Date Seen by a Provider: Sep 10, 2019 Time Seen by a Provider: 08:55 Subjective/Events-last exam Pt reports less pain today in the LLQ, but still have a little when he stood up to use the restroom this morning. He rates the pain at 2/10 today. He reports a small bowel movement that was normal in consistency. He reports several urinations this morning. He states he is hungry and would like to progress to clear liquid diet if possible. Review of Systems General: No Chills, No Fatigue HEENT: No Head Aches, No Visual Changes, No Sinus Congestion Pulmonary: No Dyspnea, No Cough Cardiovascular: No: Chest Pain, Palpitations Gastrointestinal: Abdominal Pain (Minor LLQ); No: Nausea, Vomiting, Diarrhea, Constipation Genitourinary: No Dysuria, No Hematuria Musculoskeletal: back pain (related to abdominal pain); No: neck pain Neurological: No: Weakness, Numbness Focused Exam Lactate Level 09/09/19 08:45: Lactic Acid Level 1.91 Objective Exam Vital Signs Date Time Temp Pulse Resp B/P (MAP) Pulse Ox O2 Delivery O2 Flow Rate FiO2 09/10/19 08:00 35.9 58 16 129/90 (103) 96 Room Air 09/10/19 04:00 36.4 59 18 119/79 (92) 94 Room Air 09/10/19 00:23 36.1 62 18 104/67 (79) 92 Room Air 09/09/19 20:00 Room Air 09/09/19 19:52 36.2 61 18 156/72 (100) 99 Room Air 09/09/19 16:00 36.0 66 18 120/76 (91) 94 Room Air 09/09/19 13:28 36.3 72 20 129/90 96 Room Air 09/09/19 13:15 Room Air 09/09/19 12:29 36.2 88 16 117/84 (90) 94 Room Air I & O 09/10/19 07:00 Intake Total 1220 ml Output Total 100 ml Balance 1120 ml Capillary Refill : Less Than 3 Seconds General Appearance: No Apparent Distress, WD/WN, Obese HEENT: PERRL/EOMI, Pharynx Normal Neck: Normal Inspection, Supple Respiratory: Lungs Clear, Normal Breath Sounds, No Accessory Muscle Use, No Respiratory Distress Cardiovascular: Regular Rate, Rhythm, No Edema, No Murmur, Normal Peripheral Pulses Peripheral Pulses: 2+ Dorsalis Pedis (R), 2+ Left Dors-Pedis (L), 2+ Radial Pulses (R), 2+ Radial Pulses (L) Gastrointestinal: normal bowel sounds, soft, no organomegaly; No guarding, No rebound; tenderness (llq) Extremity: Normal Inspection, Non Tender, No Pedal Edema Neurologic/Psychiatric: Alert, Oriented x3, No Motor/Sensory Deficits, Normal Mood/Affect Skin: Normal Color, Warm/Dry Lymphatic: No Adenopathy Results Lab Laboratory Tests 09/09/19 09:58: Urine Color YELLOW, Urine Clarity CLEAR, Urine pH 7.5, Urine Specific [place] 1.010L, Urine Protein NEGATIVE, Urine Glucose (UA) NEGATIVE, Urine Ketones NEGATIVE, Urine Nitrite NEGATIVE, Urine Bilirubin NEGATIVE, Urine Urobilinogen 0.2, Urine Leukocyte Esterase NEGATIVE, Urine RBC (Auto) NEGATIVE, Urine RBC NONE, Urine WBC RARE, Urine Squamous Epithelial Cells RARE, Urine Crystals NONE, Urine Bacteria NEGATIVE, Urine Casts NONE, Urine Mucus NEGATIVE, Urine Culture Indicated NO 09/10/19 04:30: White Blood Count 5.5, Red Blood Count 4.79, Hemoglobin 14.7, Hematocrit 43, Mean Corpuscular Volume 91, Mean Corpuscular Hemoglobin 31, Mean Corpuscular Hemoglobin Concent 34, Red Cell Distribution Width 14.3, Platelet Count 160, Mean Platelet Volume 10.4, Neutrophils (%) (Auto) 57, Lymphocytes (%) (Auto) 30, Monocytes (%) (Auto) 9, Eosinophils (%) (Auto) 4, Basophils (%) (Auto) 1, Neutrophils # (Auto) 3.1, Lymphocytes # (Auto) 1.6, Monocytes # (Auto) 0.5, Eosinophils # (Auto) 0.2, Basophils # (Auto) 0.0, Sodium Level 137, Potassium Level 4.2, Chloride Level 109H, Carbon Dioxide Level 18L, Anion Gap 10, Blood Urea Nitrogen 22H, Creatinine 1.06, Estimat Glomerular Filtration Rate > 60, BUN/Creatinine Ratio 21, Glucose Level 85, Calcium Level 8.5, Corrected Calcium 8.9, Total Bilirubin 0.6, Aspartate Amino Transf (AST/SGOT) 30, Alanine Aminotransferase (ALT/SGPT) 34, Alkaline Phosphatase 70, Total Protein 6.2L, Albumin 3.5 Assessment/Plan Assessment/Plan Assessment/Plan LLQ abdominal pain Diverticulitis NPO progress diet to clear liquids as tolerated, informed pt that in future if he feels another episode coming to switch to clear liquids for a couple days IV hydration continue iv antibioitcs, switch to oral if discharged no surgical intervention at this time once resolves will need a colonoscopy in about 6 weeks. will have follow up with Dr Cardoso in 4 weeks once discharged. Clinical Quality Measures DVT/VTE Risk/Contraindication: Risk Factor Score Per Nursin RFS Level Per Nursing on Admit: 3=High Pneumonia: Pseudomonal Risk: No known risk Antibiotic last taken at: IV Flagyl administered in the emergency room VALENTE HULL DO 09/10/19 1205: Subjective Time Seen by a Provider: 11:35 Subjective/Events-last exam Pt seen and examined, states he is hungry and thinks pain is better today. Objective Exam Gastrointestinal: normal bowel sounds, soft; No guarding, No rebound; tenderness (llq - mild) Assessment/Plan Assessment/Plan Assessment/Plan Diverticulitis Will start sips of clears and full liquids for dinner. Pt thinks this is his 4- 5th episode since 2011. I explained to him that treatment is to manage diet and try to avoid future episodes. Supervisory-Addendum Brief Verification & Attestation Participated in pt care: history, MDM, physical Personally performed: exam, history, MDM Care discussed with: Medical Student Procedures: n/a Verification and Attestation of Medical Student E/M Service A medical student performed and documented this service in my presence. I reviewed and verified all information documented by the medical student and made modifications to such information, when appropriate. I personally performed the physical exam and medical decision making. Valente Hull, Sep 10, 2019,12:05 JEANNINE BROWN Sep 10, 2019 09:37 VALENTE HULL DO Sep 10, 2019 12:05
[2019-09-10] MEDS ORDERED: CIPR500T4 PO (10:31)
[2019-09-10] MEDS ORDERED: METR500T PO (10:31)
--- NOTE | 2019-09-10 12:33 | Progress Note - Hospitalist ---
Subjective HPI/CC On Admission Date Seen by Provider: Sep 10, 2019 Time Seen by Provider: 08:45 Narinder Melgar is a 50-year-old male with past medical history of diverticulitis who presented with abdominal pain. He reports that the pain started on Wednesday. He eventually went into an urgent care and was started on antibiotics with Cipro and Flagyl. Today, he was traveling to [place] to do some work and had to turn around due to abdominal pain. He denies any fevers or chills. He denies any chest pain or shortness of breath. He denies any nausea or vomiting. He reports that he has had about 4-5 episodes of diverticu litis since 2011. He says that they usually occur after he eats peanuts or tomatoes. Subjective/Events-last exam He reports improved abdominal pain. He denies any nausea or vomiting. He denies any fevers or chills. He denies any chest pain or shortness of breath. Focused Exam Lactate Level 09/09/19 08:45: Lactic Acid Level 1.91 Objective Exam Vital Signs Vital Signs Date Time Temp Pulse Resp B/P (MAP) Pulse Ox O2 Delivery O2 Flow Rate FiO2 09/10/19 08:00 35.9 58 16 129/90 (103) 96 Room Air Capillary Refill : Less Than 3 Seconds General Appearance: No Apparent Distress, Obese HEENT: PERRL/EOMI, Pharynx Normal Neck: Normal Inspection, Supple Respiratory: Lungs Clear, Normal Breath Sounds, No Respiratory Distress Cardiovascular: Regular Rate, Rhythm, No Edema, No Murmur Gastrointestinal: Normal Bowel Sounds, Non Tender, Soft Extremity: Normal Inspection, Non Tender, No Pedal Edema Neurologic/Psychiatric: Alert, Oriented x3, No Motor/Sensory Deficits, Normal Mood/Affect Skin: Normal Color, Warm/Dry Results/Procedures Lab Laboratory Tests 09/10/19 04:30 Patient resulted labs reviewed. Imaging: Reviewed Imaging Report Assessment/Plan Assessment and Plan Assess & Plan/Chief Complaint Diverticulitis Continue Rocephin and Flagyl Begin liquid diet today Pain regimen ordered Surgery consulted, appreciate assistance Nicotine dependence, cigarettes, uncomplicated Nicotine patch ordered as needed DVT prophylaxis: Lovenox Diagnosis/Problems Diagnosis/Problems (1) Diverticulitis of intestine Status: Acute Clinical Quality Measures DVT/VTE Risk/Contraindication: Risk Factor Score Per Nursin RFS Level Per Nursing on Admit: 3=High Pneumonia: Pseudomonal Risk: No known risk Antibiotic last taken at: IV Flagyl administered in the emergency room SHERITA GONZALEZ MD Sep 10, 2019 12:33
[2019-09-10] MEDS: ENOXAPARIN 40 MG/0.4 ML (LOVENOX) SYR SC SCH (13:53)
[2019-09-10] MEDS: cefTRIAXone FOR IV USE 2,000 MG in WATER (STERILE) FOR INJECTION 20 ML IV SCH (13:53)
[2019-09-10] MEDS: MELATONIN 3 MG TABLET PO PRN (20:58)
[2019-09-11] MEDS: metroNIDAZOLE 500MG/100ML IVPB 100 ML IV SCH ×2 (02:00→10:57)
[2019-09-11] MEDS: LACTATED RINGERS 1,000 ML IV SCH ×3 (02:00→14:15)
[2019-09-11 05:48] LABS: BUN/CREATININE RATIO 15; CALCIUM 8.8 MG/DL (8.5-10.1); CARBON DIOXIDE 19 MMOL/L (21-32); CHLORIDE 110 MMOL/L (98-107); GFR ESTIMATED > 60; GLUCOSE 95 MG/DL (70-105); POTASSIUM 4.3 MMOL/L (3.6-5.0); SODIUM 138 MMOL/L (135-145)
[2019-09-11 08:00] VITALS: BP 121/76
--- NOTE | 2019-09-11 08:26 | Progress Note - Surgery ---
JEANNINE BROWN [facility] 09/11/19 0826: Subjective Date Seen by a Provider: Sep 11, 2019 Time Seen by a Provider: 07:55 Subjective/Events-last exam Pt reports feeling okay currently, but did state that last night after he ate a little more of a meal he noticed some increased pain. He did not have any worsening symptoms with lunch yesterday that had less substance to the meal, with the dinner having more substance to the meal and less clear liquid he felt like it may have been a little to much. He had a normal bowel movement this morning and has been urinating frequently at night. He rates his pain at 3/10 with standing motion and minimal at rest. Review of Systems General: No Chills, No Fatigue HEENT: No Head Aches, No Visual Changes Pulmonary: No Dyspnea, No Cough Cardiovascular: No: Chest Pain, Palpitations Gastrointestinal: Abdominal Pain; No: Nausea, Vomiting, Diarrhea, Constipation Genitourinary: No Dysuria; Frequency; No Incontinence, No Hematuria Musculoskeletal: back pain; No: leg pain Neurological: No: Weakness, Numbness, Confusion Focused Exam Lactate Level 09/09/19 08:45: Lactic Acid Level 1.91 Objective Exam Vital Signs Date Time Temp Pulse Resp B/P (MAP) Pulse Ox O2 Delivery O2 Flow Rate FiO2 09/10/19 23:32 36.5 70 16 108/64 (79) 93 Room Air 09/10/19 20:00 36.6 77 18 125/84 (98) 94 Room Air 09/10/19 20:00 Room Air 09/10/19 16:00 36.5 69 18 129/94 (106) 98 Room Air 09/10/19 12:00 36.4 63 20 122/86 (98) 97 Room Air I & O 09/11/19 07:00 Intake Total 3780 ml Output Total 250 ml Balance 3530 ml Capillary Refill : Less Than 3 Seconds General Appearance: No Apparent Distress, Obese HEENT: PERRL/EOMI, Pharynx Normal Neck: Normal Inspection, Supple Respiratory: Chest Non Tender, Lungs Clear, Normal Breath Sounds, No Respiratory Distress Cardiovascular: Regular Rate, Rhythm, No Edema, No Murmur, Normal Peripheral Pulses Peripheral Pulses: 2+ Dorsalis Pedis (R), 2+ Left Dors-Pedis (L), 2+ Radial Pulses (R), 2+ Radial Pulses (L) Gastrointestinal: normal bowel sounds, soft; No guarding, No rebound; tenderness (llq - mild) Extremity: Normal Inspection, Non Tender, No Pedal Edema Neurologic/Psychiatric: Alert, Oriented x3, No Motor/Sensory Deficits, Normal Mood/Affect Skin: Normal Color, Warm/Dry Lymphatic: No Adenopathy Results Lab Laboratory Tests 09/11/19 05:10: Sodium Level 138, Potassium Level 4.3, Chloride Level 110H, Carbon Dioxide Level 19L, Anion Gap 9, Blood Urea Nitrogen 15, Creatinine 1.00, Estimat Glomerular Filtration Rate > 60, BUN/Creatinine Ratio 15, Glucose Level 95, Calcium Level 8.8 Microbiology 09/09/19 Blood Culture - Preliminary, Resulted No growth Assessment/Plan Assessment/Plan Assessment/Plan Diverticulitis Continue full liquids as tolerated. Continue IV antibiotics with intention to switch oral abx at discharge Pt understands jail treatment is to manage diet and try to avoid future episodes. Pt to have follow up 4 weeks after discharge to discuss scheduling colonoscopy Clinical Quality Measures DVT/VTE Risk/Contraindication: Risk Factor Score Per Nursin RFS Level Per Nursing on Admit: 3=High Pneumonia: Pseudomonal Risk: No known risk Antibiotic last taken at: IV Flagyl administered in the emergency room IJEOMA CARDOSO DO 09/11/19 9307: Subjective Subjective/Events-last exam Feeling better today. Last night slightly more pain after eating too much. Not having any pain currently. Denies n/v fever sweats chills shortness of breath or chest pain. Wanting to go home. Objective Exam General Appearance: No Apparent Distress, Obese HEENT: PERRL/EOMI Neck: Normal Inspection, Non Tender, Supple Respiratory: Chest Non Tender, No Accessory Muscle Use, No Respiratory Distress Cardiovascular: Regular Rate, Rhythm, No Edema Gastrointestinal: soft; No guarding, No rebound; tenderness (llq - minimal with deep palpation) Extremity: Normal Inspection, Non Tender Neurologic/Psychiatric: Alert, Oriented x3, No Motor/Sensory Deficits, Normal Mood/Affect Skin: Normal Color, Warm/Dry Lymphatic: No Adenopathy Assessment/Plan Assessment/Plan Assessment/Plan LLQ abdominal pain Diverticulitis Okay to dc home will need outpatient colonoscopy continue abx outpatient. Supervisory-Addendum Brief Verification & Attestation Participated in pt care: history, MDM, physical Personally performed: exam, history, MDM, supervision of care Care discussed with: Medical Student Procedures: n/a Results interpretation: Verified all documentation Verification and Attestation of Medical Student E/M Service A medical student performed and documented this service in my presence. I re viewed and verified all information documented by the medical student and made modifications to such information, when appropriate. I personally performed the physical exam and medical decision making. Ijeoma Cardoso, Sep 11, 2019,18:59 [facility] Sep 11, 2019 08:26 IJEOMA CARDOSO DO Sep 11, 2019 18:57
[2019-09-11] MEDS ORDERED: IBUP-2185 PO (09:54)
[2019-09-11] MEDS ORDERED: LACT1TAB25 PO (09:54)
--- NOTE | 2019-09-11 10:37 | NUR ---
SPOKE WITH THE PT WELL GOING THRU THE EXT MED HISTORY TO COMPLETE THE MED REC. PT SAYS THE ONLY PRESCRIPTION MEDS HE TAKES IS CIPRO AND METRONIDAZOLE FOR DIVERTICULITIS. PT STATES HE TOOK THOSE FOR ABOUT 3 DAYS BEFORE GOING TO [facility]. OTC MEDS: PROBIOTIC IBUPROFEN
[2019-09-11] MEDS: cefTRIAXone FOR IV USE 2,000 MG in WATER (STERILE) FOR INJECTION 20 ML IV SCH (14:15)
[2019-09-11] MEDS: ENOXAPARIN 40 MG/0.4 ML (LOVENOX) SYR SC SCH (14:16)
[2019-09-11] MEDS ORDERED: ACHD5005 PO (14:47)
--- NOTE | 2019-09-11 15:01 | Discharge Summary ---
Discharge Summary Hospital Course Was the Problem List Reviewed?: Yes Problems/Dx: (1) Diverticulitis of intestine Status: Acute Hospital Course Date of Admission: Sep 09, 2019 at 12:09 Admission Diagnosis : diverticulitis Family Physician/Provider: No,Local Physician Date of Discharge: 09/11/19 Discharge Diagnosis: diverticulitis Narinder Melgar is a 50-year-old male who presented with recurrent diverticulitis. He has had a about 5 a episodes previously. upon arrival, his abdominal pain prompted a CT scan which revealed diverticulitis. General surgery was consulted and assisted with his care. He was started on IV antibiotics and his pain improved. He was transitioned to oral antibiotics and will complete a course at home. He will follow-up with surgery in about 4 weeks. Labs and Pending Lab Test: Laboratory Tests 09/11/19 05:10: Sodium Level 138, Potassium Level 4.3, Chloride Level 110H, Carbon Dioxide Level 19L, Anion Gap 9, Blood Urea Nitrogen 15, Creatinine 1.00, Estimat Glomerular Filtration Rate > 60, BUN/Creatinine Ratio 15, Glucose Level 95, Calcium Level 8.8 Microbiology 09/09/19 Blood Culture - Preliminary, Resulted No growth Home Meds Active Hydrocodone/Acetaminophen 5/325mg Tablet (Acetaminophen/Hydrocodone Bitart) 1 Tab Tab 1 Tab PO Q4-6HR PRN 7 Days Flagyl (Metronidazole) 500 Mg Tablet 500 Mg PO TID 4 Days Ciprofloxacin HCl 500 Mg Tablet 500 Mg PO BID 4 Days Reported Ibuprofen 200 Mg Capsule 400-600 Mg PO Q8H PRN Probiotic Acidophilus (Lactobacillus Acidophilus) 1 Each Tablet 1 Each PO DAILY Assessment/Pt Instructions Take medications as prescribed. Complete her course of antibiotics even if her feeling better. Follow up with Dr. Cardoso in about 4 weeks. return with worsening abdominal pain, fevers, or if you feel like you're getting worse. Discharge Planning: <30 minutes discharge planning Discharge Instructions Discharge Diet: No Restrictions Activity as Tolerated: Yes Discharge Physical Examination Vital Signs Vital Signs Date Time Temp Pulse Resp B/P (MAP) Pulse Ox O2 Delivery O2 Flow Rate FiO2 09/11/19 08:00 Room Air 09/10/19 23:32 36.5 70 16 108/64 (79) 93 General Appearance: No Apparent Distress, WD/WN HEENT: PERRL/EOMI, Pharynx Normal Respiratory: Lungs Clear, Normal Breath Sounds, No Respiratory Distress Cardiovascular: Regular Rate, Rhythm, No Edema, No Murmur Gastrointestinal: Normal Bowel Sounds, Non Tender, Soft Extremity: Normal Inspection, Non Tender, No Pedal Edema Skin: Normal Color, Warm/Dry Neurologic/Psychiatric: Alert, Oriented x3, No Motor/Sensory Deficits, Normal Mood/Affect Allergies: Coded Allergies: No Known Drug Allergies (Unverified , 09/09/19) Discharge Summary Date of Admission Sep 09, 2019 at 12:09 Date of Discharge Discharge Date: Sep 11, 2019 Discharge Time: 14:59 Admission Diagnosis diverticulitis Consults/Procedures Consulations general surgery Discharge Diagnosis Diverticulitis (1) Diverticulitis of intestine Status: Acute Clinical Quality Measures DVT/VTE Risk/Contraindication: Risk Factor Score Per Nursin RFS Level Per Nursing on Admit: 3=High Pneumonia: Pseudomonal Risk: No known risk Antibiotic last taken at: IV Flagyl administered in the emergency room SHERITA GONZALEZ MD Sep 11, 2019 15:01
[2019-09-11 15:20] VITALS: BP 118/70
--- NOTE | 2019-09-11 15:35 | NUR ---
Pastoral care visit.
== END 2019-09-11 15:20 | disposition home or self-care (01) | DRG 392 ==
LOC: ER FS 08:32 → 4TH 12:09
PROVIDERS: ADMIT Internal Medicine; ATTEND Internal Medicine
DX: K57.92 Diverticulitis of intestine, part unspecified, without perforation or abscess without bleeding (principal); F10.10 Alcohol abuse, uncomplicated; K52.9 Noninfective gastroenteritis and colitis, unspecified; F17.210 Nicotine dependence, cigarettes, uncomplicated; K59.00 Constipation, unspecified; F41.9 Anxiety disorder, unspecified; J42 Unspecified chronic bronchitis; G89.29 Other chronic pain; M54.9 Dorsalgia, unspecified; E66.9 Obesity, unspecified; Z85.828 Personal history of other malignant neoplasm of skin; Z68.33 Body mass index [BMI] 33.0-33.9, adult
CPT/HCPCS: 36415; 74177; 80048; 80053; 81000; 83605; 83690; 85025; 87040

== ENCOUNTER 2022-02-25 12:05 | Emergency (ER) | payer SELFPAY ==
[~2022-02-25] VITALS: Ht 99.3 cm; Wt 177.8 kg
[~2022-02-25 12:05] MED LIST: ACHD5005 PO; CIPR500T5 PO; IBUP-2185 PO; LACT1TAB25 PO; METR500T PO
[2022-02-25] MEDS ORDERED: NITROGLYCERIN 0.4 MG SL TABS BTL 25'S SL PRN (12:15)
[2022-02-25] MEDS ORDERED: ASPIRIN 81 MG CHEW (CHILDREN'S ASA) PO ONE (12:15)
[2022-02-25 12:24] LABS: BASOPHILS # (AUTO) 0.1 10^3/uL (0.0-0.1); BASOPHILS % (AUTO) 1 % (0-10); EOSINOPHILS % (AUTO) 1 % (0-10); HEMATOCRIT 45 % (40-54); HEMOGLOBIN 15.3 g/dL (13.3-17.7); LYMPHOCYTES # (AUTO) 1.7 10^3/uL (1.0-4.0); LYMPHOCYTES % (AUTO) 26 % (12-44); MEAN CORPUSCULAR HEMOGLOBIN 32 pg (25-34); MEAN CORPUSCULAR HGB CONC 34 g/dL (32-36); MEAN CORPUSCULAR VOLUME 94 fL (80-99); MEAN PLATELET VOLUME 10.2 fL (9.0-12.2); MONOCYTES # (AUTO) 0.6 10^3/uL (0.0-1.0); MONOCYTES % (AUTO) 9 % (0-12); NEUTROPHILS # (AUTO) 4.1 10^3/uL (1.8-7.8); NEUTROPHILS % (AUTO) 64 % (42-75); PLATELET COUNT 157 10^3/uL (130-400); WHITE BLOOD COUNT 6.4 10^3/uL (4.3-11.0)
[2022-02-25 12:44] LABS: ALBUMIN 4.2 GM/DL (3.2-4.5)
[2022-02-25 12:45] LABS: POTASSIUM 3.9 MMOL/L (3.6-5.0); PROTHROMBIN TIME PATIENT 13.7 SEC (12.2-14.7)
[2022-02-25 12:46] LABS: CALCIUM 9.1 MG/DL (8.5-10.1)
[2022-02-25 12:47] LABS: TOTAL PROTEIN 7.1 GM/DL (6.4-8.2)
[2022-02-25 12:49] LABS: BILIRUBIN,TOTAL 0.6 MG/DL (0.1-1.0)
[2022-02-25 12:51] LABS: CREATININE SERUM 1.01 MG/DL (0.60-1.30)
[2022-02-25 12:53] LABS: MAGNESIUM 2.3 MG/DL (1.6-2.4)
[2022-02-25] MEDS ORDERED: NS IV 1000 ML 1,000 ML IV SCH (13:00)
[2022-02-25 13:03] VITALS: BP 128/87
[2022-02-25 13:04] VITALS: BP_SYST 140; BP_SYST 144; BP_DIAS 96
[2022-02-25 13:07] VITALS: BP_SYST 128; BP_SYST 140; BP_SYST 144; BP_DIAS 87; BP_DIAS 96
--- NOTE | 2022-02-25 13:07 | ED Chest Pain ---
General Chief Complaint: Chest Pain Stated Complaint: DIZZINESS,CHEST TIGHTNESS Nursing Triage Note: PT ABM TO RM 7 WITH COMPLAINT OF CHEST TIGHTNESS, DIZZINESSS, LIGHTHEADED. STATES STARTED THIS MORNING WHILE AT WORK. Source: patient Exam Limitations: no limitations History of Present Illness Date Seen by Provider: Feb 25, 2022 Time Seen by Provider: 12:15 Initial Comments Patient to the ER by private conveyance with chief complaint he was at work doing construction and started having some tightness in the left chest lasting for about a minute or so spasming tight about a 2-3 out of 10 when he got here after a single nitroglycerin has not had any more of these episodes. He received aspirin from ER nurse. Complaints of dizziness lightheadedness. Does not have a history of heart disease or lung disease. Does not follow with a doctor. Heavy smoker least a pack pack and half a day for many years. Does not use recreational drugs. Has an occasional beer. Does have GERD and takes Prilosec for it and that usually Takes care of it. No endoscopy. Allergies and Home Medications Allergies Coded Allergies: No Known Drug Allergies (Unverified , 09/09/19) Patient Home Medication List Home Medication List Reviewed: Yes Ciprofloxacin HCl (Ciprofloxacin HCl) 500 Mg Tablet, 500 MG PO BID Prescribed by: SHERITA GONZALEZ on 09/10/19 1031 Hydrocodone Bit/Acetaminophen (Lortab 5 Mg Tablet) 1 Tab Tab, 1 TAB PO Q4-6HR PRN for PAIN-MODERATE Prescribed by: SHERITA GONZALEZ on 09/11/19 1447 Ibuprofen (Ibuprofen) 200 Mg Capsule, 400-600 MG PO Q8H PRN for PAIN-MILD (1-4), (Reported) Entered as Reported by: PAMELA LEMONS on 09/11/19 0954 Lactobacillus Acidophilus (Probiotic Acidophilus) 1 Each Tablet, 1 EACH PO DAILY, (Reported) Entered as Reported by: PAMELA LEMONS on 09/11/19 0954 Metronidazole (Flagyl) 500 Mg Tablet, 500 MG PO TID Prescribed by: SHERITA GONZALEZ on 09/10/19 1031 Review of Systems Review of Systems Constitutional: No chills, No diaphoresis; dizziness; No fever, No malaise EENTM: No Blurred Vision, No Double Vision Respiratory: Denies Cough, Denies Shortness of Air Cardiovascular: See HPI, Chest Pain Gastrointestinal: Denies Abdominal Pain, Denies Constipated, Denies Diarrhea, Denies Nausea Genitourinary: Denies Burning, Denies Discharge Musculoskeletal: No back pain, No joint pain All Other Systems Reviewed Negative Unless Noted: Yes Past Pobmorv-Ibjmni-Rtfaty Hx Patient Social History Tobacco Use?: Yes Tobacco type used: Cigarettes Smoking Status: Current Everyday Smoker Use of E-Cig and/or Vaping dev: No Substance use?: No Alcohol Use?: Yes Alcohol type: Beer Alcohol Frequency: Daily Pt feels they are or have been: No Seasonal Allergies Seasonal Allergies: No Past Medical History Surgeries: Yes (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 No Pertinent Family Hx Physical Exam Vital Signs Vital Signs - First Documented 02/25/22 12:08 Temp 37.7 Pulse 78 Resp 26 B/P (MAP) 160/102 (121) Pulse Ox 93 O2 Delivery Room Air Capillary Refill : Less Than 3 Seconds Height, Weight, BMI Height: '" Weight: lbs. oz. kg; 180.00 BMI Method: General Appearance: No Apparent Distress, WD/WN, Anxious HEENT: PERRL/EOMI, Pharynx Normal; No Moist Mucous Membranes Neck: Full Range of Motion, Normal Inspection Respiratory: Lungs Clear, Normal Breath Sounds, No Accessory Muscle Use, No Respiratory Distress, Decreased Breath Sounds Cardiovascular: Regular Rate, Rhythm, No Edema, Normal Peripheral Pulses Gastrointestinal: Normal Bowel Sounds, Non Tender, Soft Extremity: Normal Capillary Refill, Normal Inspection, Normal Range of Motion, Non Tender, No Calf Tenderness, No Pedal Edema Neurologic/Psychiatric: Alert, Oriented x3 Skin: Normal Color, Warm/Dry Progress/Results/Core Measures Results/Orders Lab Results Laboratory Tests Test 02/25/22 12:15 02/25/22 14:45 Range/Units White Blood Count 6.4 4.3-11.0 10^3/uL Red Blood Count 4.77 4.30-5.52 10^6/uL Hemoglobin 15.3 13.3-17.7 g/dL Hematocrit 45 40-54 % Mean Corpuscular Volume 94 80-99 fL Mean Corpuscular Hemoglobin 32 25-34 pg Mean Corpuscular Hemoglobin Concent 34 32-36 g/dL Red Cell Distribution Width 13.4 10.0-14.5 % Platelet Count 157 130-400 10^3/uL Mean Platelet Volume 10.2 9.0-12.2 fL Immature Granulocyte % (Auto) 0 % Neutrophils (%) (Auto) 64 42-75 % Lymphocytes (%) (Auto) 26 12-44 % Monocytes (%) (Auto) 9 0-12 % Eosinophils (%) (Auto) 1 0-10 % Basophils (%) (Auto) 1 0-10 % Neutrophils # (Auto) 4.1 1.8-7.8 10^3/uL Lymphocytes # (Auto) 1.7 1.0-4.0 10^3/uL Monocytes # (Auto) 0.6 0.0-1.0 10^3/uL Eosinophils # (Auto) 0.0 0.0-0.3 10^3/uL Basophils # (Auto) 0.1 0.0-0.1 10^3/uL Immature Granulocyte # (Auto) 0.0 0.0-0.1 10^3/uL Prothrombin Time 13.7 12.2-14.7 SEC INR Comment 1.0 0.8-1.4 Activated Partial Thromboplast Time 26 24-35 SEC Sodium Level 139 135-145 MMOL/L Potassium Level 3.9 3.6-5.0 MMOL/L Chloride Level 106 98-107 MMOL/L Carbon Dioxide Level 22 21-32 MMOL/L Anion Gap 11 5-14 MMOL/L Blood Urea Nitrogen 10 7-18 MG/DL Creatinine 1.01 0.60-1.30 MG/DL Estimat Glomerular Filtration Rate 85 BUN/Creatinine Ratio 10 Glucose Level 109 H 70-105 MG/DL Calcium Level 9.1 8.5-10.1 MG/DL Corrected Calcium 8.9 8.5-10.1 MG/DL Magnesium Level 2.3 1.6-2.4 MG/DL Total Bilirubin 0.6 0.1-1.0 MG/DL Aspartate Amino Transf (AST/SGOT) 24 5-34 U/L Alanine Aminotransferase (ALT/SGPT) 29 0-55 U/L Alkaline Phosphatase 81 40-136 U/L Myoglobin 40.8 10.0-92.0 NG/ML Troponin I < 0.028 < 0.028 <0.028 NG/ML Total Protein 7.1 6.4-8.2 GM/DL Albumin 4.2 3.2-4.5 GM/DL My Orders Orders - BRIT,PHUC J Cbc With Automated Diff (02/25/22 12:09) Magnesium (02/25/22 12:09) Chest 1 View, Ap/Pa Only (02/25/22 12:09) Ekg Tracing (02/25/22 12:09) Comprehensive Metabolic Panel (02/25/22 12:09) Myoglobin Serum (02/25/22 12:09) Protime With Inr (02/25/22 12:09) Partial Thromboplastin Time (02/25/22 12:09) O2 (02/25/22 12:09) Monitor-Rhythm Ecg Trace Only (02/25/22 12:09) Lipid Panel (02/26/22 06:00) Ed Iv/Invasive Line Start (02/25/22 12:09) Troponin I [place] (02/25/22 12:09) Nitroglycerin 0.4 Mg Btl 25's (Nitrostat (02/25/22 12:15) Aspirin Chewable Tablet (Baby Aspirin Ch (02/25/22 12:15) Ed Iv/Invasive Line Start (02/25/22 12:48) Ns Iv 1000 Ml (Sodium Chloride 0.9%) (02/25/22 13:00) Orthostatic Vital Signs (Adult (02/25/22 12:48) Troponin I [place] (02/25/22 15:00) Medications Given in ED Current Medications Medications Dose Ordered Sig/Anibal Route Start Time Stop Time Status Last Admin Dose Admin Aspirin 324 mg ONCE ONCE PO 02/25/22 12:15 02/25/22 12:16 DC 02/25/22 12:18 324 MG Nitroglycerin 0.4 mg UD PRN SL 02/25/22 12:15 02/25/22 12:18 0.4 MG Vital Signs/I&O 02/25/22 02/25/22 02/25/22 02/25/22 12:08 13:03 13:04 13:07 Temp 37.7 Pulse 78 81 87 81 93 87 93 Resp 26 B/P (MAP) 160/102 (121) 128/87 (101) 144/96 (112) 128/87 (101) 140/96 (111) 144/96 (112) 140/96 (111) Pulse Ox 93 O2 Delivery Room Air Blood Pressure Mean: 121 Progress Progress Note : Time: 13:01 Progress Note While the patient lays flat he desats down to 89 to 91%. He denies being short of breath. This may just represent his chronic obstructive lung disease. He is not having any more discomfort since he got a single dose of nitroglycerin. He could be having spasms of the esophagus versus heart. Plan to do a work-up as appropriate here and then have him follow-up outpatient with cardiology if renal find a thing dangerous. He is low risk for PE. No evidence of DVT no tachycardia. No cough or hemoptysis. 2 points HEART Pathway Score. Low risk; 0.9-1.7% 30-day MACE. Repeat troponin at 3 hours and if negative, discharge home with outpatient follow-up. Repeat troponin at 1500 Initial ECG Impression Date: Feb 25, 2022 Initial ECG Impression Time: 12:13 Initial ECG Rate: 82 Initial ECG Rhythm: Normal Sinus Initial ECG Intervals: Normal Initial ECG Impression: Normal Comment Normal sinus rhythm without clinically relevant ST elevation or depression. Diagnostic Imaging Diagonstic Imaging: Xray Plain Films/CT/US/NM/MRI: chest Comments [facility], [place] NAME: LA REYES [facility] REC#: [id number] PT STATUS: REG ER : 1960 PHYSICIAN: PHUC PEREA MD ADMIT DATE: 02/25/22/ER Signed Date of Exam:02/25/22 CHEST 1 VIEW, AP/PA ONLY EXAMINATION: Chest 1 view HISTORY: Chest pain COMPARISON: None available. FINDINGS: Heart size and pulmonary vasculature are normal. Linear atelectasis or scarring in the left lung base. No consolidation, pleural effusion, or pneumothorax. The osseous structures are intact. IMPRESSION: 1. No acute radiographic abnormality in the chest. Dictated by: Dictated on workstation # [id number] Dict: 02/25/22 1310 Trans: 02/25/22 1448 [facility] [id number] Interpreted by: LOLLY BARTON DO Electronically signed by: LOLLY BARTON DO 02/25/22 1448 Reviewed: Reviewed by Me Departure Impression Primary Impression: Chest pain Qualified Codes: R07.9 - Chest pain, unspecified Additional Impression: Gastroesophageal reflux disease Qualified Codes: K21.9 - Gastro-esophageal reflux disease without esophagitis Disposition: HOME, SELF-CARE Condition: Stable Departure-Patient Inst. Decision time for Depature: 16:26 Referrals: DAKOTA HULL ALI MD [facility] NO,LOCAL PHYSICIAN (PCP) Primary Care Physician Patient Instructions: Chest Pain (DC) Add. Discharge Instructions: Call the finish repairer office in the morning to make an a follow-up appointment for early next week. If they evaluate your heart and do not feel there is any further risk then you can follow-up with a primary care provider. Continue to take your Prilosec preferably 20 mg twice a day. Carafate half an hour before meals and at bedtime for a total of 4 times a day for 2 weeks to protect the lining of the stomach. If at the end of 2 weeks your heart work-up is negative and you are still having the symptoms then call the surgeon, Dr. Hull and request follow-up. All discharge instructions reviewed with patient and/or family. Voiced unders tanding. Scripts Sucralfate (Carafate) 1 Gram Tablet 1 GM PO QID for 14 Days, #56 TAB 0 Refills Prov: PHUC PEREA 02/25/22 Copy Copies To 1: DAKOTA HULL DO; REBECA LOPEZ MD [facility] PHUC PEREA Feb 25, 2022 13:07
--- NOTE | 2022-02-25 13:11 | Diagnostic Imaging Report ---
EXAMINATION: Chest 1 view HISTORY: Chest pain COMPARISON: None available. FINDINGS: Heart size and pulmonary vasculature are normal. Linear atelectasis or scarring in the left lung base. No consolidation, pleural effusion, or pneumothorax. The osseous structures are intact. IMPRESSION: 1. No acute radiographic abnormality in the chest. Dictated by: Dictated on workstation # [id number]
[2022-02-25] MEDS ORDERED: SUCR1TAB36 PO (16:28)
[2022-02-25 16:44] VITALS: BP 131/112
== END 2022-02-25 16:45 | disposition home or self-care (01) ==
LOC: EDUNIT# 12:05 → ER 12:08
DX: K21.9 Gastro-esophageal reflux disease without esophagitis (principal); F17.210 Nicotine dependence, cigarettes, uncomplicated; Z79.899 Other long term (current) drug therapy; Z28.310 Unvaccinated for COVID-19
CPT/HCPCS: 36415; 71045; 80053; 83735; 83874; 84484; 85025; 85610; 85730; 93005; 93041

== ENCOUNTER 2022-02-28 19:21 | Emergency (ER) | payer SELFPAY ==
[~2022-02-28] VITALS: Ht 177.8 cm; Wt 100.0 kg
[~2022-02-28 19:21] MED LIST changes: +SUCR1TAB36 PO
[2022-02-28 19:22] VITALS: BP 140/97
[2022-02-28] MEDS ORDERED: NS IV 1000 ML 1,000 ML IV STA (19:43)
[2022-02-28 19:47] LABS: BASOPHILS # (AUTO) 0.1 10^3/uL (0.0-0.1); BASOPHILS % (AUTO) 1 % (0-10); EOSINOPHILS # (AUTO) 0.1 10^3/uL (0.0-0.3); EOSINOPHILS % (AUTO) 2 % (0-10); HEMATOCRIT 45 % (40-54); HEMOGLOBIN 15.5 g/dL (13.3-17.7); LYMPHOCYTES # (AUTO) 2.1 10^3/uL (1.0-4.0); LYMPHOCYTES % (AUTO) 32 % (12-44); MEAN CORPUSCULAR HEMOGLOBIN 32 pg (25-34); MEAN CORPUSCULAR HGB CONC 35 g/dL (32-36); MEAN CORPUSCULAR VOLUME 92 fL (80-99); MEAN PLATELET VOLUME 10.4 fL (9.0-12.2); MONOCYTES # (AUTO) 0.6 10^3/uL (0.0-1.0); MONOCYTES % (AUTO) 9 % (0-12); NEUTROPHILS # (AUTO) 3.6 10^3/uL (1.8-7.8); NEUTROPHILS % (AUTO) 56 % (42-75); PLATELET COUNT 169 10^3/uL (130-400); WHITE BLOOD COUNT 6.5 10^3/uL (4.3-11.0)
[2022-02-28 19:50] LABS: PROTHROMBIN TIME PATIENT 13.4 SEC (12.2-14.7)
--- NOTE | 2022-02-28 19:52 | ED Chest Pain ---
General Chief Complaint: Cardiac/General Problems Stated Complaint: CHEST PAIN Source: patient History of Present Illness Date Seen by Provider: Feb 28, 2022 Time Seen by Provider: 19:21 Initial Comments 61-year-old male presenting with complaints of left upper anterior chest pain. He states he is also feeling lightheaded and dizzy at times. He reports the symptoms came on about 4 hours prior to arrival. He had similar symptoms last week and was seen in the emergency department in [place]. He states that they kept him for 5 hours and then discharged him home. He states he does have a history of GERD and reflux and takes Prilosec. They added Carafate last week. He has been under extra stress and has been working outside. Last week they told him it could be that he had caused the symptoms or could be related to his GERD but his heart had checked out okay. However he was told if he had recurrent symptoms to be evaluated again. He does not have a primary care provider to follow-up with. He also smokes about a pack of cigarettes a day and drinks beer occasionally. 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 NTG SL MICROS[employer]FT APPLICATION DEVELOPER: No Associated Symptoms: No abdominal pain, No back pain, No diaphoresis; dizziness; No edema, No fatigue, No fever/chills, No headache, No heartburn, No nausea/vomiting, No rash, No shortness of breath, No swelling/lump in chest, No syncope Allergies and Home Medications Allergies Coded Allergies: No Known Drug Allergies (Unverified , 09/09/19) Patient Home Medication List Home Medication List Reviewed: Yes Ciprofloxacin HCl (Ciprofloxacin HCl) 500 Mg Tablet, 500 MG PO BID Prescribed by: SHERITA GONZALEZ on 09/10/19 1031 Hydrocodone Bit/Acetaminophen (Lortab 5 Mg Tablet) 1 Tab Tab, 1 TAB PO Q4-6HR PRN for PAIN-MODERATE Prescribed by: SHERITA GONZALEZ on 09/11/19 1447 Ibuprofen (Ibuprofen) 200 Mg Capsule, 400-600 MG PO Q8H PRN for PAIN-MILD (1-4), (Reported) Entered as Reported by: PAMELA LEMONS on 09/11/19 0954 Lactobacillus Acidophilus (Probiotic Acidophilus) 1 Each Tablet, 1 EACH PO DAILY, (Reported) Entered as Reported by: PAMELA LEMONS on 09/11/19 0954 Metronidazole (Flagyl) 500 Mg Tablet, 500 MG PO TID Prescribed by: SHERITA GONZALEZ on 09/10/19 1031 Sucralfate (Carafate) 1 Gram Tablet, 1 GM PO QID Prescribed by: PHUC PEREA on 02/25/22 1628 Review of Systems Review of Systems Constitutional: No chills, No fever EENTM: No Symptoms Reported Respiratory: No Symptoms Reported Cardiovascular: See HPI Gastrointestinal: Denies Nausea, Denies Vomiting Genitourinary: No Symptoms Reported Musculoskeletal: no symptoms reported Skin: no symptoms reported Psychiatric/Neurological: No Symptoms Reported Endocrine: No Symptoms Reported Hematologic/Lymphatic: Denies Blood Clots Past Auywerz-Swaaqd-Zvwald Hx Patient Social History Tobacco Use?: Yes Tobacco type used: Cigarettes Smoking Status: Current Everyday Smoker Use of E-Cig and/or Vaping dev: No Substance use?: No Alcohol Use?: Yes Alcohol type: Beer Alcohol Frequency: Couple times a week Seasonal Allergies Seasonal Allergies: No Past Medical History Surgery/Hospitalization HX: GERD, hypertension Surgeries: Yes (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 No Pertinent Family Hx Physical Exam Vital Signs Vital Signs - First Documented Capillary Refill : Height, Weight, BMI Height: '" Weight: lbs. oz. kg; 180.00 BMI Method: General Appearance: No Apparent Distress, WD/WN HEENT: PERRL/EOMI, Normal ENT Inspection, Pharynx Normal Neck: Full Range of Motion, Normal Inspection, Non Tender, Supple Respiratory: Chest Non Tender, Lungs Clear, Normal Breath Sounds, No Accessory Muscle Use, No Respiratory Distress Cardiovascular: Regular Rate, Rhythm, Normal Peripheral Pulses Gastrointestinal: Normal Bowel Sounds, No Pulsatile Mass, Non Tender, Soft Rectal: Deferred Extremity: Normal Capillary Refill, Normal Inspection, No Calf Tenderness, No Pedal Edema Neurologic/Psychiatric: Alert, Oriented x3, No Motor/Sensory Deficits, financial services internship II- XII Norm as Tested Skin: Normal Color, Warm/Dry Progress/Results/Core Measures Results/Orders Lab Results Laboratory Tests Test 02/28/22 19:30 Range/Units White Blood Count 6.5 4.3-11.0 10^3/uL Red Blood Count 4.86 4.30-5.52 10^6/uL Hemoglobin 15.5 13.3-17.7 g/dL Hematocrit 45 40-54 % Mean Corpuscular Volume 92 80-99 fL Mean Corpuscular Hemoglobin 32 25-34 pg Mean Corpuscular Hemoglobin Concent 35 32-36 g/dL Red Cell Distribution Width 13.5 10.0-14.5 % Platelet Count 169 130-400 10^3/uL Mean Platelet Volume 10.4 9.0-12.2 fL Immature Granulocyte % (Auto) 0 % Neutrophils (%) (Auto) 56 42-75 % Lymphocytes (%) (Auto) 32 12-44 % Monocytes (%) (Auto) 9 0-12 % Eosinophils (%) (Auto) 2 0-10 % Basophils (%) (Auto) 1 0-10 % Neutrophils # (Auto) 3.6 1.8-7.8 10^3/uL Lymphocytes # (Auto) 2.1 1.0-4.0 10^3/uL Monocytes # (Auto) 0.6 0.0-1.0 10^3/uL Eosinophils # (Auto) 0.1 0.0-0.3 10^3/uL Basophils # (Auto) 0.1 0.0-0.1 10^3/uL Immature Granulocyte # (Auto) 0.0 0.0-0.1 10^3/uL Prothrombin Time 13.4 12.2-14.7 SEC INR Comment 1.0 0.8-1.4 Activated Partial Thromboplast Time 25 24-35 SEC Sodium Level 138 135-145 MMOL/L Potassium Level 3.9 3.6-5.0 MMOL/L Chloride Level 105 98-107 MMOL/L Carbon Dioxide Level 21 21-32 MMOL/L Anion Gap 12 5-14 MMOL/L Blood Urea Nitrogen 16 7-18 MG/DL Creatinine 0.98 0.60-1.30 MG/DL Estimat Glomerular Filtration Rate 88 BUN/Creatinine Ratio 16 Glucose Level 99 70-105 MG/DL Calcium Level 9.4 8.5-10.1 MG/DL Corrected Calcium 9.0 8.5-10.1 MG/DL Magnesium Level 2.0 1.6-2.4 MG/DL Total Bilirubin 0.5 0.1-1.0 MG/DL Aspartate Amino Transf (AST/SGOT) 23 5-34 U/L Alanine Aminotransferase (ALT/SGPT) 27 0-55 U/L Alkaline Phosphatase 96 40-136 U/L Myoglobin 25.1 <72.0 NG/ML Troponin I < 0.30 <0.30 NG/ML Pro-B-Type Natriuretic Peptide 60.9 <125.0 PG/ML Total Protein 7.4 6.4-8.2 GM/DL Albumin 4.5 3.2-4.5 GM/DL Lipase 61 8-78 U/L My Orders Orders - ASHLEY TORRES MD Cbc With Automated Diff (02/28/22 19:43) Magnesium (02/28/22 19:43) Chest 1 View Ap/Pa Only (02/28/22 19:43) Ekg Tracing (02/28/22 19:43) Comprehensive Metabolic Panel (02/28/22 19:43) Myoglobin Serum (02/28/22 19:43) Protime With Inr (02/28/22 19:43) Partial Thromboplastin Time (02/28/22 19:43) O2 (02/28/22 19:43) Monitor-Rhythm Ecg Trace Only (02/28/22 19:43) Ed Iv/Invasive Line Start (02/28/22 19:43) Lipase (02/28/22 19:43) Troponin I Fs (02/28/22 19:43) Probnp Fs (02/28/22 19:43) Ns Iv 1000 Ml (Sodium Chloride 0.9%) (02/28/22 19:43) Vital Signs/I&O 02/28/22 02/28/22 19:22 19:22 Temp 37.1 Pulse 75 Resp 16 B/P (MAP) 140/97 (111) Pulse Ox 98 98 O2 Delivery Room Air Room Air Progress Progress Note #1: Progress Note Check labs as well as electrocardiogram and chest x-ray. Patient states he has no pain currently and that his pain completely goes. He reports that it feels the same as when he was evaluated last week except last week was worse than today. Give normal saline IV fluid for hydration advised to let us know if his pain returns. Watch on cardiac playground monitor for arrhythmia or ectopy. Progress Note #2: Progress Note Electrocardiogram shows no acute ST elevation. Appears similar to prior tracing from last week. Awaiting labs and x-ray Progress Note #3: Progress Note Labs are all stable without acute significant abnormality. His troponin is negative after 4 hours of pain. His EKG appears similar to Wednesday. Will cou nse patient on findings and plan for follow-up and return precautions. Initial ECG Impression Date: Feb 28, 2022 Initial ECG Impression Time: 19:24 Initial ECG Rate: 72 Initial ECG Rhythm: Normal Sinus Initial ECG Comparisson: Unchanged Comment Normal sinus rhythm with a heart rate of 72 bpm. OK interval [address] elevation. Moderate intraventricular conduction delay. QT interval 374 ms with a QTc interval 399 ms. Overall appears similar to tracing from February 25. Diagnostic Imaging Diagonstic Imaging: Xray Plain Films/CT/US/NM/MRI: chest Comments [facility]. [place], [place] NAME: [facility] REC#: [id number] PT STATUS: REG ER : 1960 PHYSICIAN: ASHLEY TORRES MD ADMIT DATE: 02/28/22/ER FS Draft Date of Exam:02/28/22 CHEST 1 VIEW AP/PA ONLY INDICATION: Chest pain. COMPARISON: Prior examination from 02/25/2022. FINDINGS: The heart size, mediastinal configuration, and pulmonary vascularity are within normal limits. There is no pleural effusion, pneumothorax, or pneumonia. The osseous structures are unremarkable. IMPRESSION: No acute cardiopulmonary abnormality. Dictated on workstation # [id number] Dict: 02/28/222021 Trans: 02/28/222023 PJE [id number] Interpreted by: CARLOS GUNDERSON MD Electronically signed by: Reviewed: Reviewed by Me Departure Impression Primary Impression: Atypical chest pain Disposition: 01 HOME, SELF-CARE Condition: Stable Departure-Patient Inst. Decision time for Depature: 20:40 Referrals: DAKOTA HULL BASHAR J MD NO,LOCAL PHYSICIAN (PCP) Primary Care Physician [facility] [place] Patient Instructions: Chest Pain, Adult ED Add. Discharge Instructions: Stay well-hydrated and drink plenty of fluids. Avoid carbonated and caffeinated drinks as well as alcohol. Try to stay out of the heat and working excessively Make sure to follow-up with cardiology and you may also need to see the surgeon before scope to check for ulcers or gastritis in your esophagus and stomach. Establish care with a primary care provider as well for follow-up All discharge instructions reviewed with patient and/or family. Voiced understanding. ASHLEY TORRES MD Feb 28, 2022 19:52
[2022-02-28 19:55] LABS: ALBUMIN 4.5 GM/DL (3.2-4.5); BILIRUBIN,TOTAL 0.5 MG/DL (0.1-1.0); CALCIUM 9.4 MG/DL (8.5-10.1); CREATININE SERUM 0.98 MG/DL (0.60-1.30); POTASSIUM 3.9 MMOL/L (3.6-5.0); TOTAL PROTEIN 7.4 GM/DL (6.4-8.2)
--- NOTE | 2022-02-28 20:25 | Diagnostic Imaging Report ---
INDICATION: Chest pain. COMPARISON: Prior examination from 02/25/2022. FINDINGS: The heart size, mediastinal configuration, and pulmonary vascularity are within normal limits. There is no pleural effusion, pneumothorax, or pneumonia. The osseous structures are unremarkable. IMPRESSION: No acute cardiopulmonary abnormality. Dictated by: Dictated on workstation # [id number]
== END 2022-02-28 21:09 | disposition home or self-care (01) ==
LOC: ER FS 19:21
DX: R07.89 Other chest pain (principal); K21.9 Gastro-esophageal reflux disease without esophagitis; F17.210 Nicotine dependence, cigarettes, uncomplicated; Z79.899 Other long term (current) drug therapy; Z28.310 Unvaccinated for COVID-19
CPT/HCPCS: 36415; 71045; 80053; 83690; 83735; 83874; 83880; 84484; 85025; 85610; 85730; 93041

== ENCOUNTER 2022-07-13 09:18 | Emergency (ER) | payer SELFPAY ==
[~2022-07-13] VITALS: Ht 177 cm; Wt 100.0 kg
[2022-07-13 09:37] VITALS: BP 147/102
[2022-07-13] MEDS ORDERED: IBUPROFEN 800 MG (MOTRIN) TAB PO STA (09:38)
--- NOTE | 2022-07-13 09:56 | ED Upper Extremity ---
General Chief Complaint: Upper Extremity Stated Complaint: RT ARM PAIN Nursing Triage Note: Patient has presented to ER with cc of right arm pain. He reports that 2 weeks ago he pulled a muscle in his right shoulder when he threw a rock and his shoulder has been sore for the last 2 weeks. This morning he woke up with right wrist pain - he reports that his right arm from his elbow to his hand is sore and stiff. He has not taken anything for pain and came to ER for evaluation. Source: patient History of Present Illness Date Seen by Provider: Jul 13, 2022 Time Seen by Provider: 09:27 Initial Comments 61-year-old male presenting with complaints of right shoulder pain for 2 weeks since he was throwing a rock and hurt his shoulder. This morning he woke up and was having pain in his right wrist and aching up to his elbow. He states that it feels stiff and sore. He also feels like there is tingling in his fingers of the right hand. He reports that the tingling is present in all 5 fingers and not worse in certain fingers. He denies any acute injury to his wrist or forearm or elbow. He has not taken any medication to help with the pain and inflammation of his wrist, forearm, shoulder. He states he does not have a primary care provider to follow-up with. Since he was still having the tingling in his fingers and discomfort in his wrist and forearm he came to the emergency department. Onset: this morning (Tingling in his fingers and the aching pain in his wrist and forearm started this morning. The shoulder pain has been present for 2 weeks.) Severity: moderate Pain/Injury Location: right shoulder, right elbow, right forearm, right wrist Method of Injury: unknown (Unknown injury to cause symptoms this am. ) Modifying Factors: Worse With Movement Allergies and Home Medications Allergies Coded Allergies: No Known Drug Allergies (Unverified , 09/09/19) Patient Home Medication List Home Medication List Reviewed: Yes Ciprofloxacin HCl (Ciprofloxacin HCl) 500 Mg Tablet, 500 MG PO BID Prescribed by: SHERITA GONZALEZ on 09/10/19 1031 Hydrocodone Bit/Acetaminophen (Lortab 5 Mg Tablet) 1 Tab Tab, 1 TAB PO Q4-6HR PRN for PAIN-MODERATE Prescribed by: SHERITA GONZALEZ on 09/11/19 1447 Ibuprofen (Ibuprofen) 200 Mg Capsule, 400-600 MG PO Q8H PRN for PAIN-MILD (1-4), (Reported) Entered as Reported by: PAMELA LEMONS on 09/11/19 0954 Ibuprofen (Ibuprofen) 800 Mg Tablet, 800 MG PO Q8H PRN for PAIN Prescribed by: ASHLEY TORRES on 07/13/22 1055 Lactobacillus Acidophilus (Probiotic Acidophilus) 1 Each Tablet, 1 EACH PO TETE LY, (Reported) Entered as Reported by: PAMELA LEMONS on 09/11/19 0954 Metronidazole (Flagyl) 500 Mg Tablet, 500 MG PO TID Prescribed by: SHERITA GONZALEZ on 09/10/19 1031 Sucralfate (Carafate) 1 Gram Tablet, 1 GM PO QID Prescribed by: PHUC PEREA on 02/25/22 1628 Review of Systems Constitutional: No chills, No dizziness, No fever EENTM: no symptoms reported Respiratory: no symptoms reported Cardiovascular: no symptoms reported Gastrointestinal: no symptoms reported Genitourinary: no symptoms reported Musculoskeletal: see HPI Skin: No change in color Psychiatric/Neurological: See HPI Past Lyrmwfq-Ecmluu-Tdxtkz Hx Patient Social History Tobacco Use?: Yes Smoking Status: Current Everyday Smoker Substance use?: No Alcohol Use?: Yes Alcohol type: Beer Alcohol Frequency: Daily Seasonal Allergies Seasonal Allergies: No Past Medical History Surgery/Hospitalization HX: GERD, hypertension Surgeries: Yes (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 No Pertinent Family Hx Physical Exam Vital Signs Vital Signs - First Documented 07/13/22 09:37 Temp 36.5 Pulse 87 Resp 16 B/P (MAP) 147/102 (117) Pulse Ox 97 O2 Delivery Room Air Capillary Refill : Height, Weight, BMI Height: '" Weight: lbs. oz. kg; 31.00 BMI Method: General Appearance: WD/WN, no apparent distress HEENT: PERRL/EOMI Neck: non-tender, full range of motion, supple, normal inspection Cardiovascular: normal peripheral pulses, regular rate, rhythm Respiratory: chest non-tender, lungs clear, normal breath sounds, no respiratory distress, no accessory muscle use Shoulder: soft tissue tenderness (right shoulder tenderness and pain with AROM and PROM) Elbow/Forearm: normal ROM, Bilateral Wrist: No soft tissue tenderness; Yes swelling (mild swelling to right wrist) Hand: normal inspection, non-tender, no evidence of injury, normal ROM, Bilateral Neurologic/Tendon: normal sensation, normal motor functions, normal tendon functions Neurologic/Psychiatric: 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 nml as tested, no motor/sensory deficits, alert, normal mood/affect, oriented x 3 Skin: normal color, warm/dry Progress/Results/Core Measures Results/Orders My Orders Orders - ASHLEY TORRES MD Ibuprofen Tablet (Motrin Tablet) (07/13/22 09:38) Shoulder 3 View Right (07/13/22 09:38) Wrist 3 View Right (07/13/22 09:38) Forearm 2 View Right (07/13/22 09:38) Vital Signs/I&O 07/13/22 09:37 Temp 36.5 Pulse 87 Resp 16 B/P (MAP) 147/102 (117) Pulse Ox 97 O2 Delivery Room Air Blood Pressure Mean: 117 Progress Progress Note #1: Progress Note Advised patient that we will obtain x-rays to take a look for bony abnormality of the shoulder, forearm, wrist. If these do not show anything specific then it may be related back to have a pinched nerve or rotator cuff issue that is irritating his nerves. We will try a dose of ibuprofen in the meantime to try and help from inflammation and pain standpoint since he rates his pain at 6 out of 10. Advised that if these plain films did not show anything specific he would need to follow-up through the clinic as they may need to perform an MRI or order nerve conduction studies to evaluate for the aching pain and tingling in his right arm and hand Progress Note #2: Progress Note On my independent review and interpretation of his right shoulder, right wrist, right forearm I did not see any acute bony fracture or dislocation. Awaiting radiology interpretation. Progress Note #3: Progress Note On review of the radiology reading and interpretation of the x-rays of the shoulder, forearm and wrist he has some arthritic changes with concern for possible overuse injury. There is no acute fracture or dislocation seen. Counseled patient on findings and results. Again stressed to try anti- inflammatories for at least 5 to 7 days and if symptoms worsen or not improving he would need to follow-up through the clinic for possible nerve conduction studies or MRI. Diagnostic Imaging Diagonstic Imaging: Xray Plain Films/CT/US/NM/MRI: forearm Comments [facility] [place], [place] NAME: [facility] REC#: [id number] PT STATUS: REG ER : 1960 PHYSICIAN: ASHLEY TORRES MD ADMIT DATE: 07/13/22/ER FS Draft Date of Exam:07/13/22 FOREARM 2 VIEW RIGHT INDICATION: Right forearm pain AP and lateral views of right forearm are obtained. There has been previous surgery in the wrist with marginal spurring at the distal radial ulnar joint. This may be related to old injury as well. There is also dystrophic calcification along the lateral humeral epicondyles. This may be on the basis of old injury. No acute fractures identified. No lytic or sclerotic lesion is identified. IMPRESSION: Operative repair in the carpus with marginal spurring and dystrophic calcification at the distal radioulnar joint and the lateral elbow. These have an appearance suggestive of chronic injury and clinical correlation is recommended. No definite acute abnormality is appreciated. Dictated on workstation # [id number] Dict: 07/13/22 1002 Trans: 07/13/[address] [facility] [id number] Interpreted by: YVROSE SULLIVAN MD Electronically signed by: Diagonstic Imaging: Xray Plain Films/CT/US/NM/MRI: other (Right shoulder) Comments [facility]. [place], [place] NAME: [facility] REC#: [id number] PT STATUS: REG ER : 1960 PHYSICIAN: ASHLEY TORRES MD ADMIT DATE: 07/13/22/ER FS Draft Date of Exam:07/13/22 SHOULDER 3 VIEW RIGHT INDICATION: Right shoulder injury after throwing. AP, oblique and transscapular views of right shoulder reveal no acute fracture or malalignment. No lytic or sclerotic lesion is identified. Clavicle and acromioclavicular joints are unremarkable in appearance. IMPRESSION: No acute right shoulder abnormality detected. Dictated on workstation # [id number] Dict: 07/13/22 0956 Trans: 07/13/22 1009 [id number] Interpreted by: YVROSE SULLIVAN MD Electronically signed by: Diagolou Imaging: Xray Plain Films/CT/US/NM/MRI: other (Right wrist) Comments [facility] [place], [place] NAME: [facility] REC#: [id number] PT STATUS: REG ER : 1960 PHYSICIAN: ASHLEY TORRES MD ADMIT DATE: 07/13/22/ER FS Draft Date of Exam:07/13/22 WRIST 3 VIEW RIGHT INDICATION: Aching and tingling in the fingers. 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 There is radiocarpal arthritic joint space narrowing. There is a screw in the scaphoid without residual fracture line. No findings of proximal or distal polar necrosis. There is intercarpal arthritic joint space narrowing as well as CMC arthritis, greatest at the 1st. IMPRESSION: Degenerative and post operative changes. No unhealed fracture, necrosis, or acute appearing abnormality. Dictated on workstation # [id number] Dict: 07/13/22 1017 Trans: 07/13/22 1023 [id number] Interpreted by: YVROSE GORDON Electronically signed by: Departure Impression Primary Impression: Strain of other muscles, fascia and tendons at shoulder and upper arm level, right arm, initial encounter Additional Impressions: Acute pain of right wrist Pain of right forearm Hand tingling Qualified Codes: R20.2 - Paresthesia of skin Disposition: 01 HOME, SELF-CARE Condition: Stable Departure-Patient Inst. Decision time for Depature: 10:50 Referrals: NO,LOCAL PHYSICIAN (PCP) Primary Care Physician [facility] Patient Instructions: Common Wrist Injuries ED, Muscle Strain ED, Overuse Injur ies (DC), Using Cold for Pain Add. Discharge Instructions: No acute fractures or broken bones or dislocation seen with any of the images. It did look like there may be some arthritic changes that could be contributing to nerve inflammation/irritation. Try taking NSAID such as Ibuprofen or Naproxen for inflammation and aching pain. If not improving or having worsening symptoms check with clinic as they may need to order nerve conduction studies or MRI to look at your rotator cuff of the shoulder or nerves from your neck. All discharge instructions reviewed with patient and/or family. Voiced understanding. Scripts Ibuprofen (Ibuprofen) 800 Mg Tablet 800 MG PO Q8H PRN for PAIN for 10 Days, #30 TAB 0 Refills Prov: ASHLEY TORRES MD 07/13/22 ASHLEY TORRES MD Jul 13, 2022 09:56
--- NOTE | 2022-07-13 10:09 | Diagnostic Imaging Report ---
INDICATION: Right forearm pain AP and lateral views of right forearm are obtained. There has been previous surgery in the wrist with marginal spurring at the distal radial ulnar joint. This may be related to old injury as well. There is also dystrophic calcification along the lateral humeral epicondyles. This may be on the basis of old injury. No acute fractures identified. No lytic or sclerotic lesion is identified. IMPRESSION: Operative repair in the carpus with marginal spurring and dystrophic calcification at the distal radioulnar joint and the lateral elbow. These have an appearance suggestive of chronic injury and clinical correlation is recommended. No definite acute abnormality is appreciated. Dictated by: Dictated on workstation # [id number]
--- NOTE | 2022-07-13 10:10 | Diagnostic Imaging Report ---
INDICATION: Right shoulder injury after throwing. AP, oblique and transscapular views of right shoulder reveal no acute fracture or malalignment. No lytic or sclerotic lesion is identified. Clavicle and acromioclavicular joints are unremarkable in appearance. IMPRESSION: No acute right shoulder abnormality detected. Dictated by: Dictated on workstation # [id number]
--- NOTE | 2022-07-13 10:24 | Diagnostic Imaging Report ---
INDICATION: Aching and tingling in the fingers. 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 There is radiocarpal arthritic joint space narrowing. There is a screw in the scaphoid without residual fracture line. No findings of proximal or distal polar necrosis. There is intercarpal arthritic joint space narrowing as well as CMC arthritis, greatest at the 1st. IMPRESSION: Degenerative and post operative changes. No unhealed fracture, necrosis, or acute appearing abnormality. Dictated by: Dictated on workstation # [id number]
[2022-07-13] MEDS ORDERED: IBUP-1780 PO (10:55)
== END 2022-07-13 11:10 | disposition home or self-care (01) ==
LOC: EDUNIT# 09:18 → ER FS 09:20
DX: S46.811A Strain of other muscles, fascia and tendons at shoulder and upper arm level, right arm, initial encounter (principal); M25.531 Pain in right wrist; F17.200 Nicotine dependence, unspecified, uncomplicated; X58.XXXA Exposure to other specified factors, initial encounter
CPT/HCPCS: 73030; 73090; 73110